=== PATIENT | female | born 1930 | race Caucasian/White ===

== ENCOUNTER 2016-08-05 17:48 | Emergency (ER) | payer MEDICARE ==
[~2016-08-05] VITALS: Ht 167.6 cm; Wt 57.7 kg
[2016-08-05 17:48] VITALS: TEMP 98.2; Ht 167.6 cm; Wt 57.7 kg
[~2016-08-05 17:48] MED LIST: ASPI-725 PO; ENOX40DI SQ; LISI-127 PO; [UNRECOGNIZED DRUG - CODE] IJ
--- NOTE | 2016-08-05 17:54 | ERPDOC ---
Departure Disposition Decision Date: Aug 05, 2016 Disposition Decision Time: 22:45 Disposition: 04 TO [facility] HOME/FACILITY Impression Impression Impression: Primary Impression: Agitation Additional Impression: History of anxiety Condition: Improved Seen By: Mid-level only Patient Instructions: Medical Clearance for Psychiatric Care (ED) Problems/Meds/Labs Reviewed?: Yes Medications reviewed and manag: Yes Additional Instructions: Patient did not meet criteria for in patient admission for psychiatric unit. Offer patient prn lorazepam as needed for agitation/anxiety. Patient should follow with her PCP in next 2-3 days for re-evaluation. Follow up care ordered?: Yes Mental Status: Alert, Oriented HPI - Psychosocial General Stated Complaint: PSYCH EVALUATION Time Seen by MD: 17:54 Source: patient, EMS, snf records HPI - Psychosocial Initial Comments 86-year-old female brought to ED via EMS from [facility]. Patient states that she called police to reports that she was being held against her will at [facility]. Patient states that she has not been given her daily aspirin since she was admitted there a few days ago from [facility]. Patient says that Duane Vasques "locked her in the room". Duane Vasques sent paper work stating patient has been "throwing things, slamming doors, yelling and trying to leave facility" Patient states she had been living in a motel in [facility] and then had a spinal injury that she was admitted to [facility]. From [facility] patient went to [facility] for 1 month. Allergies: Coded Allergies: iodine (Verified Allergy, Unknown, 08/05/16) shellfish derived (Verified Allergy, Unknown, 08/05/16) Past History Past Medical History Metabolic: diabetes, hypertension Cardiac: CAD Respiratory: DENIES: asthma GI: DENIES: ulcers Female: DENIES: renal failure Neurological: DENIES: seizures Musculoskeletal: back pain Hematologic: anemia Psychological: dementia Surgical History Cardiac: cardiac bypass Family History Family PMH: FOUND: [place] Social History Housing: snf Review of Systems Constitutional Constitutional: DENIES: chills, dizziness, fever, weakness Eyes General: DENIES: erythema, exudate Lids/Accessories: DENIES: erythema, swelling ENMT Ears: DENIES: pain Sinuses: DENIES: congestion, rhinorrhea Mouth/Throat: DENIES: sore throat Cardiovascular Cardiac: DENIES: chest pain, murmur Rhythm/Rate: DENIES: palpitations Pulmonary Respiratory: DENIES: cough, dyspnea GI Upper Abdomen: DENIES: nausea, pain, vomiting Lower Abdomen: DENIES: blood in stool, diarrhea, pain General: DENIES: dysuria, pain Musculoskeletal General: DENIES: joint pain, pain, tenderness Integumentary Skin: DENIES: color change, itching, rash Neurological General: memory disturbances, DENIES: ataxia, change in strength, numbness, paralysis/paresis, weakness Psychiatric Psychiatric: DENIES: anxiety, depression, nervousness Physical Exam General General Nourishment: well nourished, well developed, no acute distress, adult General Body Habitus: well groomed Vitals and Pain First Documented Vital Signs Date Time Temp Pulse Resp B/P Pulse Ox O2 Delivery O2 Flow Rate FiO2 08/05/16 17:48 98.2 78 16 188/86 94 Room Air Weight: Kilograms: Height (feet): Height (inches): Triage Pain Scale: Eyes (brief) Eyes Brief: found: EOMI, PERRL ENMT (brief) ENMT Brief: FOUND: TM clear, TM good light reflex, mucosa moist, NOT FOUND: nasal exudate, nasal swelling, pharnyx erythema Neck (brief) Neck: FOUND: trachea midline, NOT FOUND: adenopathy, tenderness, thyromegaly Respiratory (brief) Respiratory: FOUND: clear all vargas, equal bilaterally, symmetrical Cardiovascular (brief) Cardiac: FOUND: regular rate, regular rhythm Abdomen (brief) Abdominal Brief: FOUND: bowel normo active x4, soft, NOT FOUND: tender Musculoskeletal (brief) Musculoskeletal Brief: NOT FOUND: deformity, loss of motion Integumentary (brief) Integumentary Brief: FOUND: dry, pink, warm Neurologic (brief) Neurological Brief: FOUND: CN w/o gross def to obs, gait w/o gross def to obs, motor-no gross deficits, sensory-no gross deficits Psychiatric (brief) Psychiatric Brief: FOUND: alert Differential Diagnoses Considering: Anxiety, Delirium, Dementia, Depression, Acute Psychosis Progress Results/Orders Orders Procedure Category Date Status Time Nothing By Mouth (Ed EDM 08/05/16 Transmitted Only) 17:52 Cbc W/Auto LAB 08/05/16 Complete Diff-Reflex Manual 17:52 Bmp - Basic Metabolic LAB 4/9/17 Complete Panel 17:52 Ua, Dip Wreflex LAB 08/05/16 Complete Microsc & General Ophthalmologist 17:52 Tsh - Thyroid Stim LAB 08/05/16 Complete Hormone 17:52 Lab Results Laboratory Tests Test 08/05/16 18:03 08/05/16 19:10 White Blood Count 3.7T/MM3 Red Blood Count 3.99M/MM3 Hemoglobin 12.6GM/DL Hematocrit 39.0% Mean Corpuscular Volume 97.7UM3 Mean Corpuscular Hemoglobin 31.6UUG Mean Corpuscular Hemoglobin Concent 32.3GM/DL RDW Standard Deviation 47.3FL Platelet Count 184T/MM3 Mean Platelet Volume 8.8UM3 Immature Granulocyte % (Auto) 0.0% Neutrophils (%) (Auto) 48.8% Lymphocytes (%) (Auto) 34.4% Monocytes (%) (Auto) 11.7% Eosinophils (%) (Auto) 4.6% Basophils (%) (Auto) 0.5% Absolute Immature Granulocyte (auto 0.00T/MM3 Absolute Neutrophils (auto) 1.8T/MM3 Absolute Lymphocytes (auto) 1.3T/MM3 Absolute Monocytes (auto) 0.4T/MM3 Absolute Eosinophils (auto) 0.2T/MM3 Absolute Basophils (auto) 0.0T/MM3 Turbidity < 20 Sodium Level 138MEQ/L Potassium Level 4.2MEQ/L Chloride Level 102MEQ/L Carbon Dioxide Level 27MEQ/L Anion Gap 9MEQ/L Blood Urea Nitrogen 12.0MG/DL Creatinine 0.7MG/DL Glomerular Filtration Rate Calc 79 BUN/Creatinine Ratio 17RATIO Glucose Level 132MG/DL Calculated Osmolality 268MOSM/KG Calcium Level 10.3MG/DL Icterus Index < 2 Thyroid Stimulating Hormone (TSH) 1.72MIU/L Chemistry Specimen Hemolysis < 15 Urine Collection Type Straight cath Urine Color Yellow Urine Turbidity Clear Urine pH 7.0 Urine Specific [place] <=1.005 Urine Protein Negative Urine Glucose (UA) Negative Urine Ketones Negative Urine Blood Trace-intact Urine Nitrite Negative Urine Bilirubin Negative Urine Urobilinogen 0.2EU/DL Urine Leukocyte Esterase Negative Urinalysis Comment Microscopic not ind. Progress Progress Labs unremarkable (similar to previous) Patient states she will go voluntary to [facility] if she meets criteria for admission. I spoke with Jos (director of [employer]) who said patient does not meet criteria for admission to [facility]. Patient has been cooperative and has shown no agitation during time she has spent in the ED. I explained to patient that she did not meet criteria for admission to [facility]. I told patient that she would have to go back to [facility], however if she did not want to continue to stay at [facility] she could visit with her PCP about other options. Patient did agree with plan of cre. Nurse called report [facility] and staff told our nurse that the cannot take patient back until provider speaks to patient PCP's PA. PA was paged without return of call. I spoke to Nidia aCmp revenue settlements administrator at [facility] and informed her that patient did not meet criteria for generations/psychiatric admission. I discussed with Nidia that patient has been cooperative and pleasant in our ED. Nidia Camp requesting that ED provider write Rx. for some type of medication for pain or to control patient's behavior. I explained to Nidia Camp that would be best addressed by Dr. Gomez patient's PCP. Patient has not complained of any pain in the ED and has been appropriated and cooperative. Patient does have lorazepam already prescribed prn for anxiety. Nidia Camp said she will have someone come corn picker patient. ALANNAH FISCHER FABRICATION ENGINEER Aug 05, 2016 17:54
--- OUTSIDE RECORDS SUMMARY | 2016-08-05 17:56 | XMS REPORT | Continuity of Care Document ---
Author Author [facility] Organization [facility] Address Unknown Phone Unavailable Support Name Relationship Address Phone RAFIQ HERMAN MD Caregiver [address], [place] [id number] GAVI RAMIREZ MD Caregiver [address] [place], [place] [address] MELVA MCNEAL & MAMIE Next Of Kin [address] [place], [place] [address] Insurance Providers Payer Name Policy Number Subscriber Name Relationship Medicare A And B [id number] Shira Adair 18 Self / Same As Patient Chief Complaint and Reason for Visit Chief Complaint DIZZINESS OBSERVATION Reason for Visit Hypertensive emergency Altered mental status Problems Medical Problems Problem Onset Date Status Hypertensive emergency 11/17/2014 Active Altered mental status ~11/17/2014 Active Medications Medication Dose Route Sig Days/Qty Instructions Order Date Discontinued Date Status Acetaminophen (Tylenol) 325 Mg ORAL EVERY 6 HOURS PRN PAIN 11/18/14 Active Aspirin 325 Mg ORAL DAILY 11/18/14 Active Carboxymethylcellulose Sodium (Carboxymethylcellulose 1%) 1 Each OPTHALMIC THREE TIMES A DAY PRN DRY EYES 11/18/14 Active Social History No social history. Hospital Discharge Instructions Patient's Instructions Instructions Instructions You are being discharged to the [facility] for further rehabilitation. You would benefit from establishing care with a physician in the near future. Your blood pressure has been dangerously elevated and needs to be monitored. Activity Instructions With assistance for now. Doctor's Appointment In the next 1-2 weeks, you need to be have follow up with a physician. Discharge Diet: Heart Healthy Discharge Plan of Care Discharge Plan of Care #1 Problem: Limited mobility Goal: Regain strength Instructions for meeting goal: FOLLOW DR. HERMAN'S DISCHARGE INSTRUCTIONS, CONTINUE WITH [facility]'S PT/OT Plan of Care Discharge Date 11/18/14 5:25pm Disposition 61 MEDICARE SWING BED Instructions/Education Provided Lisinopril (By mouth) Prescriptions See Medications Section Functional Status No functional status results. Allergies, Adverse Reactions, Alerts Allergen Type Severity Reaction Status Last Updated Iodine and Iodide Containing Produc Allergy Severe Active 11/17/14 Immunizations No immunization records. Vital Signs Acute Vital Signs Vital Response Date/Time Temperature (Fahrenheit) 97.5 Pulse 81 bpm Respirations 13 Height 5 ft 5 in Weight 113 lb Body Mass Index 18.8 kg/m^2 Results Test Source Date Result Interp. Ref. Range Comments Urine Squamous Epithelial Cells November 18, 2014 1:45pm 0-2 /LPF Collected by nurse? YHas specimen been collected/obtained? Y Urine Bacteria November 18, 2014 1:45pm 3+ /HPF H Collected by nurse? YHas specimen been collected/obtained? Y Urine WBC November 18, 2014 1:45pm 20-50 /HPF H Collected by nurse? YHas specimen been collected/obtained? Y Urine RBC November 18, 2014 1:45pm 2-5 /HPF Collected by nurse? YHas specimen been collected/obtained? Y Urine Collection Type November 18, 2014 1:45pm Clean catch Collected by nurse? YHas specimen been collected/obtained? Y Volume Urine Centrifuged November 18, 2014 1:45pm 12 ml Collected by nurse? YHas specimen been collected/obtained? Y Urine Leukocyte Esterase November 18, 2014 1:45pm 1+ H Negative Collected by nurse? YHas specimen been collected/obtained? Y Urine Urobilinogen November 18, 2014 1:45pm 0.2 mg/dL 0.2-1.0 Collected by nurse? YHas specimen been collected/obtained? Y Urine Bilirubin November 18, 2014 1:45pm Negative Negative Collected by nurse? YHas specimen been collected/obtained? Y Urine Nitrite November 18, 2014 1:45pm Positive H Negative Collected by nurse? YHas specimen been collected/obtained? Y Urine Ketones November 18, 2014 1:45pm Negative Negative Collected by nurse? YHas specimen been collected/obtained? Y Urine RBC (Auto) November 18, 2014 1:45pm 1+ H Negative Collected by nurse ? YHas specimen been collected/obtained? Y Urine Glucose (UA) November 18, 2014 1:45pm Negative Negative Collected by nurse? YHas specimen been collected/obtained? Y Urine Protein November 18, 2014 1:45pm Negative Negative Collected by nurse? YHas specimen been collected/obtained? Y Urine Specific [place] November 18, 2014 1:45pm 1.015 1.005-1.030 Collected by nurse? YHas specimen been collected/obtained? Y Urine pH November 18, 2014 1:45pm 7.0 5.0 - 8.0 Collected by nurse? YHas specimen been collected/obtained? Y Urine Clarity November 18, 2014 1:45pm Clear Collected by nurse? YHas specimen been collected/obtained? Y Urine Color November 18, 2014 1:45pm Yellow Collected by nurse? YHas specimen been collected/obtained? Y Activated Partial Thromboplast Time November 17, 2014 7:30pm 30.8 SEC N 24.9 -35.9 Alanine Aminotransferase (ALT/SGPT) November 17, 2014 7:30pm 55 U/L N 30-65 Albumin November 17, 2014 7:30pm 4.1 g/dL N 3.4-5.0 Albumin/Globulin Ratio November 17, 2014 7:30pm 1.242 N 1.1-1.8 Alkaline Phosphatase November 17, 2014 7:30pm 99 U/L N 38-126 Anion Gap November 18, 2014 5:55am 10.9 MEQ/L N 3-15 Specimen Comment: blood in lab Aspartate Amino Transf (AST/SGOT) November 17, 2014 7:30pm 56 U/L H 15-37 BUN/Creatinine Ratio November 18, 2014 5:55am 21 H 10-20 Specimen Comment: blood in lab Basophils # (Auto) November 18, 2014 5:55am 0.1 10^3uL Specimen Comment : blood in lab Basophils (%) (Auto) November 18, 2014 5:55am 1 % N 0-2 Specimen Comment: blood in lab Blood Urea Nitrogen November 18, 2014 5:55am 14 mg/dL N 7-18 Specimen Comment: blood in lab Calcium Level November 18, 2014 5:55am 10.2 mg/dL N 8.8-10.8 Specimen Comment: blood in lab Calcium/Ionized Calcium Ratio November 17, 2014 7:30pm 4.6 mg/dL N 3.8-4.6 Calculated Osmolality November 17, 2014 7:30pm 275 mosm/L L 280-300 Carbon Dioxide Level November 18, 2014 5:55am 29 mmol/L N 22-29 Specimen Comment: blood in lab Chloride Level November 18, 2014 5:55am 104 mmol/L N 98-108 Specimen Comment: blood in lab Creatine Kinase MB November 17, 2014 7:30pm 1.2 ng/mL N 0.0-6.0 Creatinine November 18, 2014 5:55am 0.68 mg/dL N 0.6-1.2 Specimen Comment: blood in lab Eosinophils # (Auto) November 18, 2014 5:55am 0.2 10^3uL Specimen Comment: blood in lab Eosinophils (%) (Auto) November 18, 2014 5:55am 6 % H 0-4 Specimen Comment : blood in lab Estimat Glomerular Filtration Rate November 18, 2014 5:55am 99.7 Specimen Comment: blood in lab Estimated GFR (Non- November 18, 2014 5:55am 82.4 Specimen Comment: blood in lab Glucose Level November 18, 2014 5:55am 85 mg/dL DN 70-110 Specimen Comment : blood in lab Hematocrit November 18, 2014 5:55am 34.70 % L 35.00-45.00 Specimen Comment : blood in lab Hemoglobin November 18, 2014 5:55am 11.5 g/dL L 12.0-15.5 Specimen Comment : blood in lab Lymphocytes # (Auto) November 18, 2014 5:55am 1.2 X10^3 Specimen Comment: blood in lab Lymphocytes (%) (Auto) November 18, 2014 5:55am 31 % N 20-46 Specimen Comment: blood in lab Mean Corpuscular Hemoglobin November 18, 2014 5:55am 32.0 PG N 26.0-34.0 Specimen Comment: blood in lab Mean Corpuscular Hemoglobin Concent November 18, 2014 5:55am 33.1 g/dL N 31.0-37.0 Specimen Comment: blood in lab Mean Corpuscular Volume November 18, 2014 5:55am 97 FL N 80-100 Specimen Comment: blood in lab Mean Platelet Volume November 18, 2014 5:55am 9.1 FL N 6.0-9.5 Specimen Comment: blood in lab Monocytes # (Auto) November 18, 2014 5:55am 0.5 X10^3 Specimen Comment : blood in lab Monocytes (%) (Auto) November 18, 2014 5:55am 13 % H 3-11 Specimen Comment : blood in lab Neutrophils # (Auto) November 18, 2014 5:55am 1.9 X10^3 Specimen Comment: blood in lab Neutrophils (%) (Auto) November 18, 2014 5:55am 49 % L 51-67 Specimen Comment: blood in lab Platelet Count November 18, 2014 5:55am 225 10^3uL N 150-450 Specimen Comment: blood in lab Potassium Level November 18, 2014 5:55am 4.3 mmol/L N 3.5-5.1 Specimen Comment: blood in lab Prothromb Time International Ratio November 17, 2014 7:30pm 0.9 N 0.8-1.4 Prothrombin Time November 17, 2014 7:30pm 12.4 SEC N 11.9-14.2 Red Blood Count November 18, 2014 5:55am 3.59 10^6uL L 4.00-5.00 Specimen Comment: blood in lab Red Cell Distribution Width November 18, 2014 5:55am 13.2 % N 11.8-15.6 Specimen Comment: blood in lab Sodium Level November 18, 2014 5:55am 140 mmol/L N 135-150 Specimen Comment : blood in lab Thyroid Stimulating Hormone (TSH) November 17, 2014 7:30pm 1.23 uIU/mL N 0.46-4.68 Specimen Comment: blood in lab Total Bilirubin November 17, 2014 7:30pm 0.5 mg/dL N 0.1-1.0 Total Creatine Kinase November 17, 2014 7:30pm 26 U/L L 30-135 Total Protein November 17, 2014 7:30pm 7.4 g/dL N 6.4-8.5 Troponin I November 17, 2014 7:30pm 0.016 ng/mL N 0.010-0.080 White Blood Count November 18, 2014 5:55am 3.81 10^3uL L 4.0-11.0 Specimen Comment: blood in lab Procedures No known history of procedures. Encounters Encounter Location Date/Time Admitted Inpatient [facility] 11/17/14 11:00pm Registered Clinic [facility] 11/17/14 8:30pm Registered Clinic [facility] 11/03/14 4:33pm Recent Diagnosis Hypertensive emergency Altered mental status
--- OUTSIDE RECORDS SUMMARY | 2016-08-05 17:56 | XMS REPORT | Continuity of Care Document ---
Author Author [facility] Address Unknown Phone Unavailable Care Team Providers Care Repulping Supervisor Name Role Phone NOÉ CLEMENS MD Primary Care Physician [phone] Insurance Providers Payer Name Policy Number Subscriber Name Relationship Medicare A And B [id number] Shira Adair 18 Self / Same As Patient Advance Directives Directive Response Recorded Date/Time Advanced Directives Unknown 09/10/15 11:01am Chief Complaint and Reason for Visit Chief Complaint Cardiac Complaint Reason for Visit Hypertensive urgency Dizziness Dependent edema Problems Active Problems Medical Problem Onset Date Status Abdominal pain Unknown Acute Altered mental status ~11/17/2014 Acute Back pain Unknown Chronic Chest pain Unknown Acute Dependent edema Unknown Acute Dizziness Unknown Acute Hypertensive emergency 11/17/2014 Resolved Hypertensive urgency Unknown Acute Laceration Unknown Acute Medications Past Home Medications Medication Directions Ordered Status Acetaminophen (Tylenol) 325 Mg Tablet, 325 Mg Oral Every 6 Hours as needed for Pain 11/18/14 Discontinued Aspirin 325 Mg Tab, 325 Mg Oral Daily 11/18/14 Discontinued Carboxymethylcellulose Sodium (Carboxymethylcellulose 1%) 1 Each Droperette, 1 Each Opthalmic Three Times A Day as needed for Dry Eyes 11/18/14 Discontinued Losartan Potassium (Cozaar) 25 Mg Tablet, 25 Mg Oral Daily 12/22/14 Discontinued Atorvastatin 10 Mg Tablet, 10 Mg Oral Moth@2100 12/22/14 Discontinued Hydrocodone Bit/Acetaminophen 1 Each Tablet, 1 Each Oral Every 4HRS as needed for Pain 12/22/14 Discontinued Cephalexin 500 Mg Capsule, 500 Mg Oral Four Times Daily 05/13/15 Discontinued Social History Query Response Start Date Stop Date Smoking Status Unknown, if ever smoked Hospital Discharge Instructions No hospital discharge instructions. Plan of Care Discharge Date 09/10/15 3:29pm Disposition 01 HOME OR SELF-CARE Condition at Discharge Stable Instructions/Education Provided Vertigo (ED) Chronic Hypertension (ED) Leg Edema (ED) Prescriptions See Medication Section Referrals NOÉ CLEMENS MD - Additional Instructions/Education Your blood pressure improved while you were in the ER today, but still remains elevated. Your leg swelling may improve with sodium restriction and elevation of your feet. You should follow up with your doctor this week on both issues, and for any further evaluation of your chronic dizziness. Some of your test results may not be complete prior to your leaving the Emergency Department. The Emergency Department is not authorized to give test results over the phone. Please contact the doctor's office listed in this packet of information for your final results. Follow up with your primary care physician or return to the Emergency Department for worsening or worrisome symptoms. * Emergency Department phone number: [phone], x [phone] MEDICAL RECORD If you need copies of your X-rays, call [phone]. If you need copies of your medical record, including lab results, a signed authorization for release of records will be required. A telephone call for release of Health Information is not allowed. BILLING Billing can sometimes be confusing and frustrating. To help avoid confusion in the future, please take a moment to acquaint yourself with the billing parties for services. SERVICE BILLING LIBERTARIAN Emergency Room Services [facility] Physician Services [facility] X-rays [facility] Patients will receive bills for services from the appropriate provider. If you have any questions about your [facility] bill, our staff will be happy to assist you. Please call [phone], and ask for the billing department. THANK YOU for choosing [facility] as your emergency care provider! Care Plan and Goals ~~Discharge Care Plan~~ Problem: Chest, epigastric or chest wall pain Goal: Decreased pain Instructions: Take medication(s) as directed. Follow home discharge instructions. Follow up with primary care physician or intelligence analyst as directed. Functional Status No functional status results. Allergies, Adverse Reactions, Alerts Allergen Type Severity Reaction Status Last Updated Iodine and Iodide Containing Produc Allergy Severe Active 11/17/14 Immunizations Name Given Type Status Date Pneumonia Vaccine Received if Current 05/04/11 Historical Historical Vital Signs Acute Vital Signs Vital Response Date/Time Temperature (Fahrenheit) 99.5 09/10/2015 3:28pm Pulse 75 bpm 09/10/2015 3:28pm Respirations 18 09/10/2015 3:28pm Height 5 ft 7 in Weight 134 lb Body Mass Index 21.0 kg/m^2 Results Laboratory Results Test Name Result Units Flags Reference Collection Date/Time Result Date/ Time Comments White Blood Count 3.56 10^3uL L 4.0-11.0 09/10/2015 10:18am 09/10/2015 11:49am Red Blood Count 4.17 10^6uL 4.00-5.00 09/10/2015 10:18am 09/10/2015 11: 49am Hemoglobin 12.9 g/dL 12.0-15.5 09/10/2015 10:1809/10/2015 11:49am Hematocrit 38.10 % 35.00-45.00 09/10/2015 10:1809/10/2015 11:49am Mean Corpuscular Volume 91 FL 80-100 09/10/2015 10:1809/10/2015 11: 49am Mean Corpuscular Hemoglobin 30.9 PG 26.0-34.0 09/10/2015 10:182015 11:49am Mean Corpuscular Hemoglobin Concent 33.9 g/dL 31.0-37.0 09/10/2015 10: 18am 09/10/2015 11:49am Red Cell Distribution Width 14.9 % 11.8-15.6 09/10/2015 10:18am 2015 11:49am Platelet Count 184 10^3uL 150-450 09/10/2015 10:1809/10/2015 11: 49am Mean Platelet Volume 9.5 FL 6.0-9.5 09/10/2015 10:1809/10/2015 11: 49am Differential Total Cells Counted 100 09/10/2015 10:1809/10/2015 11:49am Segmented Neutrophils % 55 % 51-67 09/10/2015 10:1809/10/2015 11: 49am Band Neutrophils % 1 % 0-6 09/10/2015 10:1809/10/2015 11:49am Lymphocytes % (Manual) 24 % 20-46 09/10/2015 10:1809/10/2015 11: 49am Monocytes % (Manual) 16 % H 3-11 09/10/2015 10:1809/10/2015 11:49am Eosinophils % (Manual) 3 % 0-4 09/10/2015 10:1809/10/2015 11:49am Basophils % (Manual) 1 % 0-2 09/10/2015 10:09/10/2015 11:49am Neutrophils # 2.0 09/10/2015 10:1809/10/2015 11:49am Absolute Band Neutrophils 0.0 # 09/10/2015 10:1809/10/2015 11: 49am Lymphocytes # 0.8 # 09/10/2015 10:1809/10/2015 11:49am Monocytes # 0.5 09/10/2015 10:1809/10/2015 11:49am Eosinophils # 0.1 09/10/2015 10:1809/10/2015 11:49am Basophils # (Manual) 0.0 09/10/2015 10:1809/10/2015 11:49am Blood Morphology Comment NORMAL NORMAL 09/10/2015 10:1809/10/2015 11:49am Prothrombin Time 11.7 SEC 11.6-14.2 09/10/2015 10:1809/10/2015 11: 43am Prothromb Time International Ratio 0.9 0.8-1.4 09/10/2015 10:18 11:43am Volume Urine Centrifuged 12 mL 09/10/2015 1:25pm 09/10/2015 1:57pm Urine Collection Type RANDOM VOIDED 09/10/2015 1:09/10/2015 1: 57pm Urine Color Yellow 09/10/2015 1:pm 09/10/2015 1:53pm Urine Clarity Clear 09/10/2015 1:pm 09/10/2015 1:53pm Urine pH 7.5 5.0 - 8.0 09/10/2015 1:pm 09/10/2015 1:53pm Urine Specific [place] 1.015 1.005-1.030 09/10/2015 1:pm 2015 1:53pm Urine Protein Negative Negative 09/10/2015 1:09/10/2015 1:53pm Urine Glucose (UA) Negative Negative 09/10/2015 1:09/10/2015 1: 53pm Urine RBC (Auto) Trace-intact H Negative 09/10/2015 1:pm 09/10/2015 1:53pm Urine Ketones Negative Negative 09/10/2015 1:pm 09/10/2015 1:53pm Urine Nitrite Negative Negative 09/10/2015 1:09/10/2015 1:53pm Urine Bilirubin Negative Negative 09/10/2015 1:09/10/2015 1: 53pm Urine Urobilinogen 0.2 mg/dL 0.2-1.0 09/10/2015 1:pm 09/10/2015 1: 53pm Urine Leukocyte Esterase Negative Negative 09/10/2015 1:2015 1:53pm Urine RBC 0-2 /HPF 09/10/2015 1:pm 09/10/2015 1:57pm Urine WBC None Seen /HPF 09/10/2015 1:09/10/2015 1:57pm Urine Bacteria Rare /HPF 09/10/2015 1:09/10/2015 1:57pm Urine Squamous Epithelial Cells 2-5 /LPF 09/10/2015 1:pm 2015 1:57pm Sodium Level 137 mmol/L 135-150 09/10/2015 10:18am 09/10/2015 11:43am Potassium Level 3.9 mmol/L 3.5-5.1 09/10/2015 10:18am 09/10/2015 11: 43am Chloride Level 102 mmol/L 98-108 09/10/2015 10:1809/10/2015 11:43am Carbon Dioxide Level 28 mmol/L 22-29 09/10/2015 10:1809/10/2015 11: 43am Anion Gap 10.4 MEQ/L 3-15 09/10/2015 10:1809/10/2015 11:43am Blood Urea Nitrogen 18 mg/dL 7-18 09/10/2015 10:1809/10/2015 11: 43am Creatinine 0.72 mg/dL 0.6-1.2 09/10/2015 10:1809/10/2015 11:43am BUN/Creatinine Ratio 25 H 10-20 09/10/2015 10:1809/10/2015 11:43am Estimat Glomerular Filtration Rate 93.1 09/10/2015 10:182015 11:43am Estimated GFR (Non- 77.0 09/10/2015 10:182015 11:43am Glucose Level 133 mg/dL H 70-110 09/10/2015 10:1809/10/2015 11:43am Calculated Osmolality 268 mosm/L L 280-300 09/10/2015 10:182015 11:43am Calcium Level 11.2 mg/dL H 8.8-10.8 09/10/2015 10:1809/10/2015 11: 43am Calcium/Ionized Calcium Ratio 4.8 mg/dL H 3.8-4.6 09/10/2015 10:18 11:43am Total Bilirubin 0.7 mg/dL 0.1-1.0 09/10/2015 10:1809/10/2015 11: 43am Alkaline Phosphatase 59 U/L 38-126 09/10/2015 10:1809/10/2015 11: 43am Aspartate Amino Transf (AST/SGOT) 52 U/L H 15-37 09/10/2015 10:18 11:43am Alanine Aminotransferase (ALT/SGPT) 50 U/L 30-65 09/10/2015 10:18 11:43am Total Creatine Kinase 133 U/L 30-135 09/10/2015 1:12pm 09/10/2015 1: 35pm Creatine Kinase MB 6.5 ng/mL H 0.0-6.0 09/10/2015 1:12pm 09/10/2015 1: 40pm Troponin I 0.017 ng/mL 0.010-0.080 09/10/2015 1:12pm 09/10/2015 1:40pm GB-Ogu-F-Type Natriuretic Peptide 415 pg/mL 0-450 09/10/2015 10:18am 11:56am <300 ng/mL - HF unlikely Age <50 years, NT-proBNP >450 pg/mL - HF Likely Age 50-75 yrs, NT-proBNP >900 pg/mL - HF Likely Age >75 yrs, NT-proBNP >1800 - HF likely Total Protein 7.5 g/dL 6.4-8.5 09/10/2015 10:18am 09/10/2015 11:43am Albumin 4.3 g/dL # 3.4-5.0 09/10/2015 10:18am 09/10/2015 11:43am Albumin/Globulin Ratio 1.343 1.1-1.8 09/10/2015 10:18am 09/10/2015 11 :43am Thyroid Stimulating Hormone (TSH) 1.94 uIU/mL # 0.46-4.68 09/10/2015 10: 18am 09/10/2015 12:17pm Procedures No known history of procedures. Encounters Encounter Location Arrival/Admit Date Discharge/Depart Date Attending Provider Registered Emergency Room [facility] 09/10/15 10:49am ASLENA BERGERON DO Registered Clinic [facility] 09/10/15 10:20am SALENA BERGERON DO Recent Diagnosis
--- OUTSIDE RECORDS SUMMARY | 2016-08-05 17:57 | XMS REPORT | Continuity Of Care Document ---
Author Author [facility] Organization [facility] Address [address] [place] [address] Phone Care Team Providers Care Medical Authorization Specialist Name Role Phone SARIAH MEYERS, Jf Unavailable ELIDA AMARAL, R AT JAYLEEN MEYERS, D PP [phone] UNASSIGNED, PHYSICIAN Unavailable Unavailable DOMINGO MEYERS, ZAK Unavailable OLIVIA MEYERS, Kim Unavailable BK MEYERS, S CP DONNIE MEYERS, F AD Results Lab Results Visit/Account #[id number] (October 25, 2015 4:58pm - November 01, 2015 1:31pm) Test Result Date/Time 36256-7: COMPLETE BLOOD COUNT WITH DIFF WHITE BLOOD COUNT(4.0-11.0 10E3/UL) 4.8 10E3/UL October 25, 2015 5:18pm 3.3 10E3/UL October 26, 2015 5:21am RED BLOOD COUNT(4.00-5.20 10E6/UL) 3.83 10E6/UL October 25, 2015 5:18pm 3.63 10E6/UL October 26, 2015 5:21am HEMOGLOBIN(12.0-16.0 G/DL) 12.3 G/DL October 25, 2015 5:18pm 11.6 G/DL October 26, 2015 5:21am HEMATOCRIT(36.0-46.0 %) 36.6 % October 25, 2015 5:18pm 34.7 % October 26, 2015 5:21am MEAN CORPUSCULAR VOLUME(82.0-100.0 FL) 95.6 FL October 25, 2015 5:18pm 95.6 FL October 26, 2015 5:21am 52693-1: MEAN CORPUSCULAR HEMOGLOBIN(26.0-34.0 PG) 32.1 PG October 25, 2015 5:18pm 32.0 PG October 26, 2015 5:21am MEAN CORPUSCULAR HGB CONC(31.5-36.5 G/DL) 33.6 G/DL October 25, 2015 5:18pm 33.4 G/DL October 26, 2015 5:21am RED CELL DISTRIBUTION WIDTH(11.5-14.5 %) 14.1 % October 25, 2015 5:18pm 14.0 % October 26, 2015 5:21am 777-3: PLATELET COUNT(150-450 10E3/UL) 180 10E3/UL October 25, 2015 5:18pm 158 10E3/UL October 26, 2015 5:21am MEAN PLATELET VOLUME(8.2-12.4 FL) 9.4 FL October 25, 2015 5:18pm 9.1 FL October 26, 2015 5:21am 770-8: NEUTROPHILS % (AUTO)(40-70 %) 59 % October 25, 2015 5:18pm 52 % October 26, 2015 5:21am LYMPHOCYTES % (AUTO)(15-45 %) 20 % October 25, 2015 5:18pm 24 % October 26, 2015 5:21am 5905-5: MONOCYTES % (AUTO)(2-10 %) 18 % October 25, 2015 5:18pm 17 % October 26, 2015 5:21am 713-8: EOSINOPHILS % (AUTO)(0-6 %) 3 % October 25, 2015 5:18pm 6 % October 26, 2015 5:21am 706-2: BASOPHILS % (AUTO)(0-1 %) 1 % October 25, 2015 5:18pm 1 % October 26, 2015 5:21am 21381-3: IMMATURE GRANS % (AUTO)(0-0 %) 0 % October 25, 2015 5:18pm 0 % October 26, 2015 5:21am NUCLEATED RBCS (AUTO)(0-0 %) 0 % October 25, 2015 5:18pm 0 % October 26, 2015 5:21am 751-8: NEUTROPHILS # (AUTO)(2.5-7.5 10E3/UL) 2.8 10E3/UL October 25, 2015 5:18pm 1.7 10E3/UL October 26, 2015 5:21am 98856-0: LYMPHOCYTES # (AUTO)(1.0-4.0 10E3/UL) 0.9 10E3/UL October 25, 2015 5:18pm 0.8 10E3/UL October 26, 2015 5:21am 742-7: MONOCYTES # (AUTO)(0.2-0.8 10E3/UL) 0.8 10E3/UL October 25, 2015 5:18pm 0.5 10E3/UL October 26, 2015 5:21am 711-2: EOSINOPHILS # (AUTO)(0.0-0.4 10E3/UL) 0.1 10E3/UL October 25, 2015 5:18pm 0.2 10E3/UL October 26, 2015 5:21am 704-7: BASOPHILS # (AUTO)(0.0-0.2 10E3/UL) 0.1 10E3/UL October 25, 2015 5:18pm 0.0 10E3/UL October 26, 2015 5:21am IMMATURE GRANS # (AUTO)(0.0-0.0 10E3/UL) 0.0 10E3/UL October 25, 2015 5:18pm 0.0 10E3/UL October 26, 2015 5:21am DIFF TYPE AUTOMATED October 25, 2015 5:18pm AUTOMATED October 26, 2015 5:21am COMPLETE BLOOD COUNT WHITE BLOOD COUNT(4.0-11.0 10E3/UL) 3.3 10E3/UL October 27, 2015 5:27am 4.2 10E3/UL October 29, 2015 7:15am RED BLOOD COUNT(4.00-5.20 10E6/UL) 3.70 10E6/UL October 27, 2015 5:27am 3.94 10E6/UL October 29, 2015 7:15am HEMOGLOBIN(12.0-16.0 G/DL) 11.6 G/DL October 27, 2015 5:27am 12.6 G/DL October 29, 2015 7:15am HEMATOCRIT(36.0-46.0 %) 35.3 % October 27, 2015 5:27am 38.0 % October 29, 2015 7:15am MEAN CORPUSCULAR VOLUME(82.0-100.0 FL) 95.4 FL October 27, 2015 5:27am 96.4 FL October 29, 2015 7:15am 73204-9: MEAN CORPUSCULAR HEMOGLOBIN(26.0-34.0 PG) 31.4 PG October 27, 2015 5:27am 32.0 PG October 29, 2015 7:15am MEAN CORPUSCULAR HGB CONC(31.5-36.5 G/DL) 32.9 G/DL October 27, 2015 5:27am 33.2 G/DL October 29, 2015 7:15am RED CELL DISTRIBUTION WIDTH(11.5-14.5 %) 13.9 % October 27, 2015 5:27am 13.8 % October 29, 2015 7:15am 777-3: PLATELET COUNT(150-450 10E3/UL) 151 10E3/UL October 27, 2015 5:27am 175 10E3/UL October 29, 2015 7:15am MEAN PLATELET VOLUME(8.2-12.4 FL) 8.9 FL October 27, 2015 5:27am 8.9 FL October 29, 2015 7:15am NUCLEATED RBCS (AUTO)(0-0 %) 0 % October 27, 2015 5:27am 0 % October 29, 2015 7:15am 45384-9: PROTHROMBIN TIME WITH INR PROTHROMBIN TIME(12.1-14.0 SEC) 13.0 SEC October 25, 2015 5:18pm 56730-0: INR 1.02 Result Comments: INR reference interval applies to patients on anticoagulant therapy. Suggested INR therapeutic range for oral anticoagulant therapy: (Stabilized anticoagulated patients) Routine Therapy: 2.0 to 3.0 Recurrent Myocardial Infarction: 2.5 to 3.5 Mechanical Prosthetic Valves: 2.5 to 3.5 October 25, 2015 5:18pm PARTIAL THROMBOPLASTIN TIME PARTIAL THROMBOPLASTIN TIME(22.2-37.4 SEC) 31.3 SEC October 25, 2015 5:18pm 19516-2: COMPLETE METABOLIC PROFILE GLUCOSE(70-110 MG/DL) 86 MG/DL October 25, 2015 5:18pm BLOOD UREA NITROGEN(6-20 MG/DL) 13 MG/DL October 25, 2015 5:18pm CREATININE(0.50-1.20 MG/DL) 0.70 MG/DL October 25, 2015 5:18pm 19838-4: EST GLOMERULAR FILTRATION RATE(Greater than or equal to 60) Greater than or equal to 60 Result Comments: If the patient is of -German descent/extraction multiply the eGFR value by 1.212 to obtain the actual eGFR. >=60 mg/dL Normal 30-59 mg/dL Moderate Kidney Disease 15-29 mg/dL Severe Kidney Disease <15 mg/dL Kidney Failure October 25, 2015 5:18pm BUN CREATININE RATIO(10.0-20.0 RATIO) 19.0 RATIO October 25, 2015 5:18pm SODIUM(135-145 MMOL/L) 132 MMOL/L October 25, 2015 5:18pm POTASSIUM(3.6-5.0 MMOL/L) 4.1 MMOL/L October 25, 2015 5:18pm CHLORIDE(101-111 MMOL/L) 100 MMOL/L October 25, 2015 5:18pm 8-9: CO2(21-31 MMOL/L) 26 MMOL/L October 25, 2015 5:18pm ANION GAP(8-18) 10 October 25, 2015 5:18pm OSMO CALCULATED(270.0-290.0) 263.9 October 25, 2015 5:18pm CALCIUM(8.5-10.5 MG/DL) 10.5 MG/DL October 25, 2015 5:18pm BILIRUBIN,TOTAL(0.1-1.2 MG/DL) 1.0 MG/DL October 25, 2015 5:18pm ALKALINE PHOSPHATASE(42-121 IU/L) 62 IU/L October 25, 2015 5:18pm ASPARTATE AMINO TRANSFERASE(10-42 IU/L) 31 IU/L October 25, 2015 5:18pm ALANINE AMINOTRANSFERASE(10-60 IU/L) 25 IU/L October 25, 2015 5:18pm TOTAL PROTEIN(6.4-8.2 G/DL) 6.8 G/DL October 25, 2015 5:18pm ALBUMIN(3.5-5.5 G/DL) 4.1 G/DL October 25, 2015 5:18pm GLOBULIN(2.4-3.6) 2.7 October 25, 2015 5:18pm ALBUMIN/GLOBULIN RATIO(0.9-1.8 RATIO) 1.5 RATIO October 25, 2015 5:18pm BASIC METABOLIC PANEL GLUCOSE(70-110 MG/DL) 98 MG/DL October 26, 2015 5:21am 97 MG/DL October 27, 2015 5:27am 143 MG/DL October 29, 2015 7:15am BLOOD UREA NITROGEN(6-20 MG/DL) 12 MG/DL October 26, 2015 5:21am 12 MG/DL October 27, 2015 5:27am 19 MG/DL October 29, 2015 7:15am CREATININE(0.50-1.20 MG/DL) 0.60 MG/DL October 26, 2015 5:21am 0.65 MG/DL October 27, 2015 5:27am 0.67 MG/DL October 29, 2015 7:15am 68178-3: EST GLOMERULAR FILTRATION RATE(Greater than or equal to 60) Greater than or equal to 60 Result Comments: If the patient is of -German descent/extraction multiply the eGFR value by 1.212 to obtain the actual eGFR. >=60 mg/dL Normal 30-59 mg/dL Moderate Kidney Disease 15-29 mg/dL Severe Kidney Disease <15 mg/dL Kidney Failure October 26, 2015 5:21am Greater than or equal to 60 Result Comments: If the patient is of -German descent/extraction multiply the eGFR value by 1.212 to obtain the actual eGFR. >=60 mg/dL Normal 30-59 mg/dL Moderate Kidney Disease 15-29 mg/dL Severe Kidney Disease <15 mg/dL Kidney Failure October 27, 2015 5:27am Greater than or equal to 60 Result Comments: If the patient is of -German descent/extraction multiply the eGFR value by 1.212 to obtain the actual eGFR. >=60 mg/dL Normal 30-59 mg/dL Moderate Kidney Disease 15-29 mg/dL Severe Kidney Disease <15 mg/dL Kidney Failure October 29, 2015 7:15am BUN CREATININE RATIO(10.0-20.0 RATIO) 20.0 RATIO October 26, 2015 5:21am 18.0 RATIO October 27, 2015 5:27am 28.0 RATIO October 29, 2015 7:15am SODIUM(135-145 MMOL/L) 134 MMOL/L October 26, 2015 5:21am 133 MMOL/L October 27, 2015 5:27am 134 MMOL/L October 29, 2015 7:15am POTASSIUM(3.6-5.0 MMOL/L) 4.3 MMOL/L October 26, 2015 5:21am 4.2 MMOL/L October 27, 2015 5:27am 4.5 MMOL/L October 29, 2015 7:15am CHLORIDE(101-111 MMOL/L) 102 MMOL/L October 26, 2015 5:21am 99 MMOL/L October 27, 2015 5:27am 102 MMOL/L October 29, 2015 7:15am 8-9: CO2(21-31 MMOL/L) 28 MMOL/L October 26, 2015 5:21am 29 MMOL/L October 27, 2015 5:27am 29 MMOL/L October 29, 2015 7:15am ANION GAP(8-18) 8 October 26, 2015 5:21am 9 October 27, 2015 5:27am 8 October 29, 2015 7:15am OSMO CALCULATED(270.0-290.0) 268.0 October 26, 2015 5:21am 266.1 October 27, 2015 5:27am 273.0 October 29, 2015 7:15am CALCIUM(8.5-10.5 MG/DL) 9.7 MG/DL October 26, 2015 5:21am 9.5 MG/DL October 27, 2015 5:27am 9.9 MG/DL October 29, 2015 7:15am 49150-9: MAGNESIUM 75813-8: MAGNESIUM(1.8-2.5 MG/DL) 2.3 MG/DL October 27, 2015 5:27am 44746-1: [place] I 34948-2: CARDIAC TROPONIN I(0.01-0.04 NG/ML) 0.01 NG/ML Result Comments: REFERENCE RANGES: NEGATIVE < 0.04 NG/ML POSSIBLE MYCARDIAL INVOLVEMENT >/=0.04 NG/ML INTERPRET TROPONIN I RESULT IN LIGHT OF THE TOTAL CLINICAL PRESENTATION INCLUDING CLINICAL HISTORY. ANY CONDITION RESULTING IN MYOCARDIAL INJURY CAN POTENTIALLY ELEVATE TROPONIN I LEVELS ABOVE EXPECTED NORMAL RANGES. NOTE NEW REFERENCE RANGE October 25, 2015 5:18pm 3040-3: LIPASE 3040-3: LIPASE(22-51 U/L) 22 U/L October 25, 2015 5:18pm Allergies and Adverse Reactions Allergies and Adverse Reactions Patient Unit Number: [id number] Agent Type Reaction Severity Status IODINE Drug Allergy Unknown Severe Active Problem List Problem List Visit/Account #[id number] (October 25, 2015 4:58pm - November 01, 2015 1:31pm) Acute Problems: Code/Condition Comments Documented Start Date Documented Resolved Date Code (s) Total self-care deficit ICD10: R41.89 Total self-care deficit ICD9: 799.59 Total self-care deficit SNOMED: 93378087 Total self-care deficit Intractable low back pain ICD10: M54.5 Intractable low back pain ICD9: 724.2 Intractable low back pain SNOMED: 038420307 Intractable low back pain Physical deconditioning ICD10: R53.81 Physical deconditioning ICD9: 799.3 Physical deconditioning SNOMED: 892704689 Physical deconditioning Plan of Care Plan Of Care Visit/Account #[id number] (October 25, 2015 4:58pm - November 01, 2015 1:31pm) Patient Instructions Instructions Hydrocodone Vital Signs Vital Signs Visit/Account #[id number] (October 25, 2015 4:58pm - November 01, 2015 1:31pm) Sign First Result Last Result Code(s) Blood Pressure 133/ 77 mm[Hg] On October 26, 2015 2:05am 162/ 84 mm[Hg] On November 01, 2015 10:08am 162/ 84 mm[Hg] On November 01, 2015 10:08am 8480-6 BP Systolic Heart Rate/Pulse Pulse Rate (adult): 61 /min On October 26, 2015 2:05am Pulse Rate (adult): 72 /min On November 01, 2015 10:08am Pulse Rate (adult): 72 /min On November 01, 2015 10:08am 8867-4 Heart Rate 8893-0 Pulse rate Respiratory Rate Respiratory Rate: 16 /min On October 26, 2015 2:05am Respiratory Rate: 16 /min On November 01, 2015 10:08am Respiratory Rate: 16 /min On November 01, 2015 10:08am 9279-1 Respiratory rate Temperature in Fahrenheit Temperature (Fahrenheit): 97.4 [degF] On October 26, 2015 2:05am Temperature (Fahrenheit): 98.8 [degF] On November 01, 2015 10:08am Temperature (Fahrenheit): 98.8 [degF] On November 01, 2015 10:08am 8310-5 Body Temperature Weight in Kilograms Weight (Kilograms): 55.6 kg On October 25, 2015 4:56pm 3141-9 Weight Measured 25475-3 Body weight measured in kilograms Functional Status Functional and Cognitive Status No Functional Status Data Medications Home Medications - Medications that the patient was taking prior to arrival at the hospital Visit/Account #[id number] (October 25, 2015 4:58pm - November 01, 2015 1:31pm) Medication Route Sig/Schedule Precondition/Indication Comments/Instructions Codes ASPIRIN(ASPIRIN) 325 MG TABLET.DR Dose: 325 MG ORAL DAILY Aspirin 325 MG Delayed Release Oral Tablet (RxNorm): 534876 ASPIRIN (ASPIRIN) NDC: 82037782505 REFRESH CELLUVISC(CARBOXYMETHYLCELLULOSE SOD) 0.4 ML SOLUTION Dose: 1 DROP EACH EYE 3 TIMES A DAY DRY EYES Carboxymethylcellulose 0.01 MG/MG Ophthalmic Gel [Refresh Liquigel] (RxNorm): 8456813 REFRESH CELLUVISC (CARBOXYMETHYLCELLULOSE SOD) NDC: 64799249997 TYLENOL(ACETAMINOPHEN) 325 MG TAB Dose: 0 MG ORAL Q6H MILD PAIN Acetaminophen 325 MG Oral Tablet (RxNorm): 890444 TYLENOL (ACETAMINOPHEN) NDC: 85245146267 B-12(CYANOCOBALAMIN (VITAMIN B-12)) 500 MCG TABLET Dose: 500 MCG ORAL DAILY B-12 (CYANOCOBALAMIN (VITAMIN B-12)) NDC: 94993900836 VITAMIN B6(PYRIDOXINE HCL) 100 MG TAB Dose: 100 MG ORAL THREE TIMES A WEEK Vitamin B6 100 MG Oral Tablet (RxNorm): 546174 VITAMIN B6 (PYRIDOXINE HCL) NDC: 79768740331 VITAMIN D3(CHOLECALCIFEROL (VITAMIN D3)) 1000 UNIT CAPSULE Dose: 1000 UNIT ORAL DAILY Cholecalciferol 1000 UNT Oral Capsule (RxNorm): 542744 VITAMIN D3 (CHOLECALCIFEROL (VITAMIN D3)) NDC: 09672400874 Folic Acid(FOLIC ACID) 0.8 MG CAPSULE Dose: 0.8 MG ORAL 3-4 TIMES A WEEK Folic Acid (FOLIC ACID) NDC: 65916642655 Inpatient/Ordered Medications - Medications administered during hospital visit Visit/Account #[id number] (October 25, 2015 4:58pm - November 01, 2015 1:31pm) Medication Route Sig/Schedule Precondition/Indication Comments/Instructions Codes IV Medication Carriers: NORMAL SALINE(SODIUM CHLORIDE) 1000 ML INJECTION Dose: 500 ML INTRAVEN .Q30M (Rate: 1000 MLS/HR Duration: 30 MIN) Carriers: Sodium Chloride 0.154 MEQ/ML Injectable Solution (RxNorm): 291907 NORMAL SALINE (SODIUM CHLORIDE) NDC: 35828023260 SUBLIMAZE INJ(FentaNYL CITRATE) 100 MCG/2 ML INJECTION Dose: 0.5 ML INTRAVEN NOW Label Comments: GIVE BY SLOW PUSH OVER 2-5 MIN MAY INCREASE FALL RISK Fentanyl 0.05 MG/ML Injectable Solution (RxNorm): 008179 SUBLIMAZE INJ (FentaNYL CITRATE) NDC: 11172492515 ATIVAN INJ(LORazepam) 2 MG/ML INJECTION Dose: 0.25 ML INTRAVEN NOW Label Comments: *DILUTE WITH EQUAL VOLUME OF NORMAL SALINE PRIOR TO IV ADMINISTRATION MAY INCREASE FALL RISK 1 ML Lorazepam 2 MG/ML Injection [Ativan] (RxNorm): 2228000 ATIVAN INJ (LORazepam) NDC: 62382277352 TORADOL INJ(KETOROLAC TROMETHAMINE) 30 MG/ML INJECTION Dose: 0.5 ML INTRAVEN NOW Label Comments: DO NOT EXCEED 5 DAYS OF THERAPY 1 ML Ketorolac Tromethamine 30 MG/ML Injection (RxNorm): 0889355 TORADOL INJ (KETOROLAC TROMETHAMINE) NDC: 68325356160 LIDODERM 5% PATCH(LIDOCAINE) 1 PATCH PATCH Dose: 0 PATCH TOPICALLY NOW Label Comments: PATCH MAY REMAIN IN PLACE FOR UP TO 12 HOURS IN EACH 24 HOUR PERIOD Lidocaine Hydrochloride 0.05 MG/MG Transdermal Patch [Lidoderm] (RxNorm): 1250091 LIDODERM 5% PATCH (LIDOCAINE) NDC: 40290067003 DULCOLAX(BISACODYL) 10 MG SUPPOSITORY Dose: 10 MG RECTALLY NEEDED PRN Reason: CONSTIPATION Bisacodyl 10 MG Rectal Suppository [Bisac-Evac] (RxNorm): 313026 DULCOLAX (BISACODYL) NDC: 56252122871 NORCO 5-325(HYDROcodone BIT/ACETAMINOPHEN) 1 TAB TAB Dose: 0 TAB ORAL Q4H PRN Reason: MODERATE PAIN Label Comments: <<may be substituted for 5/500>> REC MAX DAILY DOSE ACETAMINOPHEN: 4000 MG/24 HR MAY INCREASE FALL RISK Special Dose Instructions: 1-2 TABS Acetaminophen 325 MG / Hydrocodone Bitartrate 5 MG Oral Tablet (RxNorm): 863453 NORCO 5-325 (HYDROcodone BIT/ACETAMINOPHEN) NDC: 03951078727 LOVENOX(ENOXAPARIN) 40 MG/0.4 ML INJECTION Dose: 0.4 ML SUBCUTANEOUSLY DAILY@07 Label Comments: INJECT SC INTO ABDOMINAL WALL ONLY. 0.4 ML Enoxaparin sodium 100 MG/ML Prefilled Syringe [Lovenox] (RxNorm): 839881 LOVENOX (ENOXAPARIN) NDC: 29411582826 ECOTRIN(ASPIRIN) 325 MG TAB Dose: 325 MG ORAL DAILY Aspirin 325 MG Delayed Release Oral Tablet (RxNorm): 717778 ECOTRIN (ASPIRIN) NDC: 93552239254 ECOTRIN(ASPIRIN) 81 MG TAB Dose: 81 MG ORAL DAILY Aspirin 81 MG Delayed Release Oral Tablet (RxNorm): 436225 ECOTRIN (ASPIRIN) NDC: 48428415898 DELTASONE(PredniSONE) 20 MG TAB Dose: 20 MG ORAL DAILY AT [facility] Label Comments: TAKE WITH FOOD OR MILK Prednisone 20 MG Oral Tablet (RxNorm): 526857 DELTASONE (PredniSONE) NDC: 93947391134 Discharge Medications - Medications that patient should continue to take. Review with physician Visit/Account #[id number] (October 25, 2015 4:58pm - November 01, 2015 1:31pm) Medication Route Sig/Schedule Precondition/Indication Comments/Instructions Codes ASPIRIN(ASPIRIN) 325 MG TABLET.DR Dose: 325 MG ORAL DAILY Aspirin 325 MG Delayed Release Oral Tablet (RxNorm): 890612 ASPIRIN (ASPIRIN) NDC: 24221867310 REFRESH CELLUVISC(CARBOXYMETHYLCELLULOSE SOD) 0.4 ML SOLUTION Dose: 1 DROP EACH EYE 3 TIMES A DAY DRY EYES Carboxymethylcellulose 0.01 MG/MG Ophthalmic Gel [Refresh Liquigel] (RxNorm): 1376501 REFRESH CELLUVISC (CARBOXYMETHYLCELLULOSE SOD) NDC: 81795629662 B-12(CYANOCOBALAMIN (VITAMIN B-12)) 500 MCG TABLET Dose: 500 MCG ORAL DAILY B-12 (CYANOCOBALAMIN (VITAMIN B-12)) NDC: 83883387222 VITAMIN B6(PYRIDOXINE HCL) 100 MG TAB Dose: 100 MG ORAL THREE TIMES A WEEK Vitamin B6 100 MG Oral Tablet (RxNorm): 253413 VITAMIN B6 (PYRIDOXINE HCL) NDC: 85643875100 VITAMIN D3(CHOLECALCIFEROL (VITAMIN D3)) 1000 UNIT CAPSULE Dose: 1000 UNIT ORAL DAILY Cholecalciferol 1000 UNT Oral Capsule (RxNorm): 239721 VITAMIN D3 (CHOLECALCIFEROL (VITAMIN D3)) NDC: 54125288355 Folic Acid(FOLIC ACID) 0.8 MG CAPSULE Dose: 0.8 MG ORAL 3-4 TIMES A WEEK Folic Acid (FOLIC ACID) NDC: 69211406532 HYDROcodone BIT/ACETAMINOPHEN 5-325 MG(HYDROcodone BIT/ACETAMINOPHEN) 1 EACH TABLET Dose: 1-2 TAB ORAL EVERY 6 HOURS PAIN Acetaminophen 325 MG / Hydrocodone Bitartrate 5 MG Oral Tablet (RxNorm): 115143 HYDROcodone BIT/ACETAMINOPHEN 5-325 MG (HYDROcodone BIT/ACETAMINOPHEN) NDC: 88794713193 History Of Encounters Encounters Visit/Account #[id number] (October 25, 2015 4:58pm - November 01, 2015 1:31pm) Account Status Physican Of Record Reason For Visit Visit Diagnosis Start Date/Time Stop Date/Time ER CARLTON BOURGEOIS MD INTRACTABLE LOW BACK PAIN,PHYSICAL DECONDITIONING M54.5: LOW BACK PAIN ICD10 Oct 25, 2015 4:58pm Oct 25, 2015 7:23pm IN SHAVONNE MARRERO DO INTRACTABLE LOW BACK PAIN,PHYSICAL DECONDITIONING M54.5: LOW BACK PAIN ICD10 Oct 25, 2015 7:23pm Nov 01, 2015 1:31pm History of Procedures Procedure List No procedures recorded. Discharge Instructions Discharge Instructions Visit/Account #[id number] (October 25, 2015 4:58pm - November 01, 2015 1:31pm) DISCHARGE INSTRUCTIONS Physician Documentation PROVIDER INSTRUCTIONS Discharge Diet As Tolerated Discharge Activity/Weight Bearing Status as tolerated Discharge Diet As Tolerated Discharge Activity/Weight Bearing Status as tolerated CARE MANAGEMENT/HOME HEALTH Care Management home health to evaluate and treat as needed - PT/OT needs REASON TO CALL PROVIDER Notify Physician if: fever, worsening pain FOLLOW UP APPOINTMENTS Follow Up With PCP in 5-7 days [phone] Dr. Hillman - call for appointment [phone] Social History Social History No Social History Data. Immunizations Immunizations Patient Unit Number: [id number] Immunizations No immunizations recorded.
--- OUTSIDE RECORDS SUMMARY | 2016-08-05 17:57 | XMS REPORT | Continuity of Care Document ---
Author Author [facility] Address Unknown Phone Unavailable Allergies Active Description Code Type Severity Reaction Onset Reported/Identified Relationship to Patient Clinical Status Yes Iodine and Iodide Containing Produc [id number] Drug Allergy Severe N/A 11/17/2014 Medications Problems Date Dx Coded Attending Type Code Diagnosis Diagnosed By 11/09/2014 Ot 724.2 11/09/2014 Ot 724.5 11/09/2014 Ot 729.5 11/09/2014 Ot 780.09 11/09/2014 Ot 784.0 11/09/2014 Ot 786.50 11/09/2014 Ot E849.6 11/09/2014 Ot E888.9 11/18/2014 VIRGIL MEYERS, RAFIQ Ot 401.9 11/18/2014 VIRGIL MEYERS, RAFIQ Ot 780.4 11/18/2014 VIRGIL MEYERS, RAFIQ H Ot V12.54 11/18/2014 VIRGIL MEYERS, RAFIQ Ot V15.81 11/23/2014 Ot 724.2 11/23/2014 Ot 724.5 11/23/2014 Ot 729.5 11/23/2014 Ot 780.09 11/23/2014 Ot 784.0 11/23/2014 Ot 786.50 11/23/2014 Ot E849.6 11/23/2014 Ot E888.9 11/24/2014 Ot 724.2 11/24/2014 Ot 724.5 11/24/2014 Ot 729.5 11/24/2014 Ot 780.09 11/24/2014 Ot 784.0 11/24/2014 Ot 786.50 11/24/2014 Ot E849.6 11/24/2014 Ot E888.9 11/24/2014 GAVI RAMIREZ MD Ot 780.79 11/24/2014 GAVI RAMIREZ MD Ot 784.0 11/24/2014 Ot 724.2 11/24/2014 Ot 724.5 11/24/2014 Ot 729.5 11/24/2014 Ot 780.09 11/24/2014 Ot 784.0 11/24/2014 Ot 786.50 11/24/2014 Ot E849.6 11/24/2014 Ot E888.9 11/24/2014 GAVI RAMIREZ MD R Ot 780.79 11/24/2014 GAVI RAMIREZ MD Ot 784.0 11/25/2014 Ot 724.2 11/25/2014 Ot 724.5 11/25/2014 Ot 729.5 11/25/2014 Ot 780.09 11/25/2014 Ot 784.0 11/25/2014 Ot 786.50 11/25/2014 Ot E849.6 11/25/2014 Ot E888.9 12/10/2014 GAVI RAMIREZ MD Ot 780.79 12/10/2014 GAVI RAMIREZ MD Ot 784.0 12/22/2014 BELGICA MEYERS, FRANSICO Ot 722.52 12/22/2014 BELGICA MEYERS, FRANSICO Ot 724.2 12/22/2014 BELGICA MEYERS, FRANSICO Ot 729.5 12/22/2014 BELGICA MEYERS, FRANSICO Ot 733.13 01/07/2015 SARITA MEYERS, TRUE Marquez Ot V12.54 04/19/2015 Ot 724.2 04/19/2015 Ot 724.5 04/19/2015 Ot 729.5 04/19/2015 Ot 780.09 04/19/2015 Ot 784.0 04/19/2015 Ot 786.50 04/19/2015 Ot E849.6 04/19/2015 Ot E888.9 04/19/2015 GAVI RAMIERZ MD R Ot 780.79 04/19/2015 GAVI RAMIREZ MD Ot 784.0 04/19/2015 SARITA MEYERS, TRUE Marquez Ot V12.54 04/19/2015 NOÉ CLEMENS MD Ot 733.00 04/19/2015 NOÉ CLEMENS MD Ot V49.81 05/05/2015 Ot 724.2 05/05/2015 Ot 724.5 05/05/2015 Ot 729.5 05/05/2015 Ot 780.09 05/05/2015 Ot 784.0 05/05/2015 Ot 786.50 05/05/2015 Ot E849.6 05/05/2015 Ot E888.9 05/05/2015 JAMES MEYERS, GAVI Marquez Ot 780.79 05/05/2015 GAVI RAMIREZ MD R Ot 784.0 05/05/2015 SARITA MEYERS, TRUE R Ot V12.54 05/05/2015 JAYLEEN MEYERS, NOÉ Benavides Ot 733.00 05/05/2015 JAYLEEN MEYERS, NOÉ Benavides Ot V49.81 05/05/2015 JAYLEEN MEYERS, NOÉ Benavides Ot E83.52 05/05/2015 JAYLEEN MEYERS, NOÉ Benavides Ot I65.23 05/05/2015 JAYLEEN MEYERS, NOÉ Benavides Ot M81.0 05/05/2015 JAYLEEN MEYERS, NOÉ Benavides Ot Z86.73 05/05/2015 Ot 724.2 05/05/2015 Ot 724.5 05/05/2015 Ot 729.5 05/05/2015 Ot 780.09 05/05/2015 Ot 784.0 05/05/2015 Ot 786.50 05/05/2015 Ot E849.6 05/05/2015 Ot E888.9 05/05/2015 JAMES MEYERS, GAVI R Ot 780.79 05/05/2015 JAMES MEYERS, GAVI R Ot 784.0 05/05/2015 SARITA MEYERS, TRUE Marquez Ot V12.54 05/05/2015 JAYLEEN MEYERS, NOÉ Benavides Ot 733.00 05/05/2015 JAYLEEN MEYERS, NOÉ Benavides Ot V49.81 05/05/2015 JAYLEEN MEYERS, NOÉ Benavides Ot E83.52 05/05/2015 JAYLEEN MEYERS, NOÉ Benavides Ot I65.23 05/05/2015 JAYLEEN MEYERS, NOÉ Benavides Ot M81.0 05/05/2015 JAYLEEN MEYERS, NOÉ Benavides Ot Z86.73 05/05/2015 ROSITA MEYERS, DAMIAN Thorpe Ot E78.5 05/05/2015 ROSITA MEYERS, DAMIAN Thorpe Ot I10 05/05/2015 ROSITA MEYERS, DAMIAN Thorpe Ot I25.10 05/05/2015 ROSITA MEYERS, DAMIAN Thorpe Ot M79.1 05/05/2015 ROSITA MEYERS, DAMIAN P Ot R07.9 05/05/2015 ROSITA MEYERS, DAMIAN P Ot R10.9 05/12/2015 JAYLEEN MEYERS, NOÉ Benavides Ot E83.52 05/12/2015 JAYLEEN MEYERS, NOÉ Benavides Ot I65.23 05/12/2015 JAYLEEN MEYERS, NOÉ Benavides Ot M81.0 05/12/2015 JAYLEEN MEYERS, NOÉ Benavides Ot Z86.73 05/12/2015 Ot 724.2 05/12/2015 Ot 724.5 05/12/2015 Ot 729.5 05/12/2015 Ot 780.09 05/12/2015 Ot 784.0 05/12/2015 Ot 786.50 05/12/2015 Ot E849.6 05/12/2015 Ot E888.9 05/12/2015 JAMES MEYERS, GAVI R Ot 780.79 05/12/2015 JAMES MEYERS, GAVI R Ot 784.0 05/12/2015 SARITA MEYERS, TRUE R Ot V12.54 05/12/2015 JAYLEEN MEYERS, NOÉ Benavides Ot 733.00 05/12/2015 JAYLEEN MEYERS, NOÉ Benavides Ot V49.81 05/12/2015 JAYLEEN MEYERS, NOÉ Benavides Ot E83.52 05/12/2015 JAYLEEN MEYERS, NOÉ Benavides Ot I65.23 05/12/2015 JAYLEEN MEYERS, NOÉ Benavides Ot M81.0 05/12/2015 JAYLEEN MEYERS, NOÉ Benavides Ot Z86.73 05/12/2015 JAYLEEN MEYERS, NOÉ Benavides Ot E67.3 05/12/2015 JAYLEEN MEYERS, NOÉ Benavides Ot E83.52 05/12/2015 JAYLEEN MEYERS, NOÉ Benavides Ot I10 05/13/2015 GARCIA MEYERS, AIDAN P Ot I10 05/13/2015 GARCIA MEYERS, AIDAN P Ot I25.10 05/13/2015 GARCIA MEYERS, AIDAN P Ot S91.311A 05/13/2015 GARCIA MEYERS, AIDAN P Ot W26.0XXA 05/13/2015 GARCIA MEYERS, AIDAN P Ot Y92.009 05/13/2015 GARCIA MEYERS, AIDAN P Ot Z86.73 05/23/2015 Ot 724.2 05/23/2015 Ot 724.5 05/23/2015 Ot 729.5 05/23/2015 Ot 780.09 05/23/2015 Ot 784.0 05/23/2015 Ot 786.50 05/23/2015 Ot E849.6 05/23/2015 Ot E888.9 05/23/2015 JAMES MEYERS, GAVI R Ot 780.79 05/23/2015 JAMES MEYERS, GAVI R Ot 784.0 05/23/2015 SARITA MEYERS, TRUE Marquez Ot V12.54 05/23/2015 JAYLEEN MEYERS, NOÉ Benavides Ot 733.00 05/23/2015 JAYLEEN MEYERS, NOÉ Benavides Ot V49.81 05/23/2015 JAYLEEN MEYERS, NOÉ Benavides Ot E83.52 05/23/2015 JAYLEEN MEYERS, NOÉ Benavides Ot I65.23 05/23/2015 JAYLEEN MEYERS, NOÉ Benavides Ot M81.0 05/23/2015 JAYLEEN MEYERS, NOÉ Benavides Ot Z86.73 05/23/2015 JAYLEEN MEYERS, NOÉ Benavides Ot E67.3 05/23/2015 JAYLEEN MEYERS, NOÉ Benavides Ot E83.52 05/23/2015 JAYLEEN MEYERS, NOÉ Benavides Ot I10 05/23/2015 JAYLEEN MEYERS, NOÉ Benavides Ot E83.52 05/23/2015 JAYLEEN MEYERS, NOÉ Benavides Ot I65.23 05/23/2015 JAYLEEN MEYERS, NOÉ Benavides Ot M81.0 05/23/2015 JAYLEEN MEYERS, NOÉ Benavides Ot Z86.73 05/23/2015 JAYLEEN MEYERS, NOÉ Benavides Ot E67.3 05/23/2015 JAYLEEN MEYERS, NOÉ Benavides Ot E83.52 05/23/2015 JAYLEEN MEYERS, NOÉ Benavides Ot I10 05/23/2015 SARITA MEYERS, TRUE Marquez Ot V12.54 05/24/2015 JAYLEEN MEYERS, NOÉ Benavides Ot E67.3 05/24/2015 JAYLEEN MEYERS, NOÉ Benavides Ot E83.52 05/24/2015 AJYLEEN MEYERS, NOÉ Benavides Ot I10 06/06/2015 JAYLEEN MEYERS, NOÉ Benavides Ot E67.3 06/06/2015 JAYLEEN MEYERS, NOÉ Benavides Ot E83.52 06/06/2015 JAYLEEN MEYERS, NOÉ Benavides Ot I10 06/15/2015 JAYLEEN MEYERS, NOÉ Benavides Ot E83.52 06/15/2015 JAYLEEN MEYERS, NOÉ Benavides Ot I65.23 06/15/2015 JAYLEEN MEYERS, NOÉ Benavides Ot M81.0 06/15/2015 JAYLEEN MEYERS, NOÉ Benavides Ot Z86.73 06/15/2015 SARITA MEYERS, TRUE Marquez Ot V12.54 09/10/2015 SALENA BERGERON DO Ot I10 ESSENTIAL (PRIMARY) HYPERTENSION 09/10/2015 SALENA BERGERON DO Ot I25.10 ATHSCL HEART DISEASE OF [place] CORONARY 09/10/2015 SALENA BERGERON DO Ot R42 DIZZINESS AND GIDDINESS 09/10/2015 SALENA BERGERON DO Ot Z86.73 PRSNL HX OF TIA (TIA), AND CEREB INFRC W 09/10/2015 SALENA BERGERON DO Ot Z95.1 PRESENCE OF AORTOCORONARY BYPASS GRAFT 09/15/2015 SALENA BERGERON DO Ot R03.0 ELEVATED BLOOD-PRESSURE READING, W/O KEY 09/15/2015 SALENA BERGERON DO Ot R42 DIZZINESS AND GIDDINESS 09/15/2015 SALENA BERGERON DO Ot I10 ESSENTIAL (PRIMARY) HYPERTENSION 09/15/2015 SALENA BERGERON DO Ot I25.10 ATHSCL HEART DISEASE OF [place] CORONARY 09/15/2015 SALENA BERGERON DO Ot R42 DIZZINESS AND GIDDINESS 09/15/2015 SALENA BERGERON DO Ot Z86.73 PRSNL HX OF TIA (TIA), AND CEREB INFRC W 09/15/2015 SALENA BERGERON DO Ot Z95.1 PRESENCE OF AORTOCORONARY BYPASS GRAFT 10/13/2015 SALENA BERGERON DO Ot R03.0 ELEVATED BLOOD-PRESSURE READING, W/O KEY 10/13/2015 SALENA BERGERON DO Ot R42 DIZZINESS AND GIDDINESS Procedures Results Encounters ACCT No. Visit Date/Time Discharge Status Pt. Type Provider Facility Loc./Unit Complaint [id number] 09/10/2015 10:49:00 2015 15:29:00 DIS Emergency RUBIO AMARAL, SALENA [facility] ED [id number] 05/12/2015 23:35:00 2015 08:19:00 [id number]2015 13:04:00 2015 16:37:00 DIS Inpatient ROSITA MEYERS, [facility] MED/SURG [id number] 01/20/2015 08:43:00 2014 23:59:59 CLS Outpatient JAYLEEN MEYERS, [facility] RAD [id number] 12/22/2014 10:49:00 2014 17:01:00 DIS Emergency BELGICA MEYERS, [facility] ED [id number] 11/25/2014 18:15:00 2014 23:59:59 CLS Preadmit SARITA MEYERS, [facility] RAD [id number] 11/23/2014 09:32:00 2014 23:59:59 CLS Outpatient SARITA MEYERS, [facility] RT [id number] 11/17/2014 23:00:00 2014 17:25:00 DIS Inpatient VIRGIL MEYERS, [facility] ICU [id number] 11/17/2014 20:30:00 2014 23:59:59 CLS Outpatient JAMES MEYERS, [facility] EMS [id number] 11/03/2014 16:33:00 2014 23:59:59 CLS Outpatient [facility] EMS [id number] 09/10/2015 10:20:00 ACT Outpatient RUBIO AMARAL [facility] EMS [id number] 05/03/2015 11:52:00 ACT Outpatient JAYLEEN MEYERS, [facility] LAB [id number] 04/19/2015 09:50:00 ACT Outpatient JAYLEEN MEYERS, [facility] RAD
--- OUTSIDE RECORDS SUMMARY | 2016-08-05 17:57 | XMS REPORT | Continuity Of Care Document ---
Author Author [facility] Organization [facility] Address [address] [place] [address] Phone Care Team Providers Care Patient Access Coordinator Name Role Phone HELADIO MEYERS, Sheri CP JAYLEEN MEYERS, D PP [phone] MD CP GEOVANI MEYERS, Tyler AD MICHAEL MEYERS, Ancelmo AT Results Lab Results Visit/Account #[id number] (April 17, 2016 7:05pm - April 25, 2016 1: 15pm) Test Result Date/Time G3AR 25707-8: STYPE ART April 19, 2016 6:46pm 50687-0: PH(7.35-7.45) 7.389 April 19, 2016 6:46pm PCO2(35-45 mmHg) 39.9 mmHg April 19, 2016 6:46pm 12846-3: PO2(80-105 mmHg) 80 mmHg April 19, 2016 6:46pm HCO3(22-26 MMOL/L) 24.1 MMOL/L April 19, 2016 6:46pm TCO2(23-27 MMOL/L) 25 MMOL/L April 19, 2016 6:46pm SO2C(95-98 %) 96 % April 19, 2016 6:46pm 1922-4: ABG BASE DEFICIT(0-30 mmol/L) 1 mmol/L April 19, 2016 6:46pm FIO2(%) 21 % April 19, 2016 6:46pm POCGL POCGL(70-110 MG/DL) 99 MG/DL April 19, 2016 6:41pm 72267-2: COMPLETE BLOOD COUNT WITH DIFF WHITE BLOOD COUNT(4.0-11.0 10E3/UL) 4.7 10E3/UL April 19, 2016 5:33am 5.1 10E3/UL April 21, 2016 5:40am RED BLOOD COUNT(4.00-5.20 10E6/UL) 3.12 10E6/UL April 19, 2016 5:33am 3.32 10E6/UL April 21, 2016 5:40am HEMOGLOBIN(12.0-16.0 G/DL) 9.9 G/DL April 19, 2016 5:33am 10.4 G/DL April 21, 2016 5:40am HEMATOCRIT(36.0-46.0 %) 30.7 % April 19, 2016 5:33am 32.8 % April 21, 2016 5:40am MEAN CORPUSCULAR VOLUME(82.0-100.0 FL) 98.4 FL April 19, 2016 5:33am 98.8 FL April 21, 2016 5:40am 79055-3: MEAN CORPUSCULAR HEMOGLOBIN(26.0-34.0 PG) 31.7 PG April 19, 2016 5:33am 31.3 PG April 21, 2016 5:40am MEAN CORPUSCULAR HGB CONC(31.5-36.5 G/DL) 32.2 G/DL April 19, 2016 5:33am 31.7 G/DL April 21, 2016 5:40am RED CELL DISTRIBUTION WIDTH(11.5-14.5 %) 13.5 % April 19, 2016 5:33am 13.5 % April 21, 2016 5:40am 777-3: PLATELET COUNT(150-450 10E3/UL) 162 10E3/UL April 19, 2016 5:33am 159 10E3/UL April 21, 2016 5:40am MEAN PLATELET VOLUME(8.2-12.4 FL) 9.6 FL April 19, 2016 5:33am 9.2 FL April 21, 2016 5:40am 770-8: NEUTROPHILS % (AUTO)(40-70 %) 57 % April 19, 2016 5:33am 62 % April 21, 2016 5:40am LYMPHOCYTES % (AUTO)(15-45 %) 29 % April 19, 2016 5:33am 21 % April 21, 2016 5:40am 5905-5: MONOCYTES % (AUTO)(2-10 %) 13 % April 19, 2016 5:33am 12 % April 21, 2016 5:40am 713-8: EOSINOPHILS % (AUTO)(0-6 %) 0 % April 19, 2016 5:33am 5 % April 21, 2016 5:40am 706-2: BASOPHILS % (AUTO)(0-1 %) 0 % April 19, 2016 5:33am 0 % April 21, 2016 5:40am 43383-8: IMMATURE GRANS % (AUTO)(0-0 %) 1 % April 19, 2016 5:33am 1 % April 21, 2016 5:40am NUCLEATED RBCS (AUTO)(0-0 %) 0 % April 19, 2016 5:33am 0 % April 21, 2016 5:40am 751-8: NEUTROPHILS # (AUTO)(2.5-7.5 10E3/UL) 2.6 10E3/UL April 19, 2016 5:33am 3.1 10E3/UL April 21, 2016 5:40am 22814-9: LYMPHOCYTES # (AUTO)(1.0-4.0 10E3/UL) 1.3 10E3/UL April 19, 2016 5:33am 1.1 10E3/UL April 21, 2016 5:40am 742-7: MONOCYTES # (AUTO)(0.2-0.8 10E3/UL) 0.6 10E3/UL April 19, 2016 5:33am 0.6 10E3/UL April 21, 2016 5:40am 711-2: EOSINOPHILS # (AUTO)(0.0-0.4 10E3/UL) 0.0 10E3/UL April 19, 2016 5:33am 0.2 10E3/UL April 21, 2016 5:40am 704-7: BASOPHILS # (AUTO)(0.0-0.2 10E3/UL) 0.0 10E3/UL April 19, 2016 5:33am 0.0 10E3/UL April 21, 2016 5:40am IMMATURE GRANS # (AUTO)(0.0-0.0 10E3/UL) 0.0 10E3/UL April 19, 2016 5:33am 0.0 10E3/UL April 21, 2016 5:40am DIFF TYPE AUTOMATED April 19, 2016 5:33am AUTOMATED April 21, 2016 5:40am COMPLETE BLOOD COUNT WHITE BLOOD COUNT(4.0-11.0 10E3/UL) 5.8 10E3/UL April 19, 2016 7:09pm RED BLOOD COUNT(4.00-5.20 10E6/UL) 3.85 10E6/UL April 19, 2016 7:09pm HEMOGLOBIN(12.0-16.0 G/DL) 12.4 G/DL April 19, 2016 7:09pm HEMATOCRIT(36.0-46.0 %) 37.8 % April 19, 2016 7:09pm MEAN CORPUSCULAR VOLUME(82.0-100.0 FL) 98.2 FL April 19, 2016 7:09pm 04313-9: MEAN CORPUSCULAR HEMOGLOBIN(26.0-34.0 PG) 32.2 PG April 19, 2016 7:09pm MEAN CORPUSCULAR HGB CONC(31.5-36.5 G/DL) 32.8 G/DL April 19, 2016 7:09pm RED CELL DISTRIBUTION WIDTH(11.5-14.5 %) 13.4 % April 19, 2016 7:09pm 777-3: PLATELET COUNT(150-450 10E3/UL) 205 10E3/UL April 19, 2016 7:09pm MEAN PLATELET VOLUME(8.2-12.4 FL) 9.1 FL April 19, 2016 7:09pm NUCLEATED RBCS (AUTO)(0-0 %) 0 % April 19, 2016 7:09pm 21702-4: PROTHROMBIN TIME WITH INR PROTHROMBIN TIME(12.1-14.0 SEC) 14.0 SEC April 19, 2016 9:31am 85046-3: INR 1.08 Result Comments: INR reference interval applies to patients on anticoagulant therapy. Suggested INR therapeutic range for oral anticoagulant therapy: (Stabilized anticoagulated patients) Routine Therapy: 2.0 to 3.0 Recurrent Myocardial Infarction: 2.5 to 3.5 Mechanical Prosthetic Valves: 2.5 to 3.5 April 19, 2016 9:31am PARTIAL THROMBOPLASTIN TIME PARTIAL THROMBOPLASTIN TIME(22.2-37.4 SEC) 26.2 SEC April 19, 2016 9:31am UA WITH SCREEN FOR CULTURE 5778-6: COLOR,URINE LIGHT YELLOW April 20, 2016 2:22pm 57510-4: CLARITY,URINE CLEAR April 20, 2016 2:22pm GLUCOSE, URINE(NEGATIVE MG/DL) NEGATIVE MG/DL April 20, 2016 2:22pm URINE BILIRUBIN(NEGATIVE) NEGATIVE April 20, 2016 2:22pm KETONES,URINE(NEGATIVE MG/DL) NEGATIVE MG/DL April 20, 2016 2:22pm URINE SPECIFIC GRAVITY(1.001-1.035) 1.012 April 20, 2016 2:22pm 56814-4: URINE BLOOD(NEGATIVE) NEGATIVE April 20, 2016 2:22pm 2756-5: URINE PH(5.0-9.0) 8.0 April 20, 2016 2:22pm URINE PROTEIN(Less than 20 MG/DL) NEGATIVE MG/DL April 20, 2016 2:22pm 13917-6: URINE UROBILINOGEN(0.2-1.0 MG/DL) 0.2-1.0 MG/DL April 20, 2016 2:22pm URINE NITRITE(NEGATIVE) NEGATIVE April 20, 2016 2:22pm 5799-2: LEUKOCYTE ESTERASE ,URINE(NEGATIVE) NEGATIVE April 20, 2016 2:22pm 630-4: URINE CULTURE NOT INDICATED April 20, 2016 2:22pm URINE MICROSCOPIC REQUIRED NO April 20, 2016 2:22pm BASIC METABOLIC PANEL GLUCOSE(70-110 MG/DL) 92 MG/DL April 19, 2016 5:33am 101 MG/DL April 19, 2016 7:09pm 92 MG/DL April 21, 2016 5:40am BLOOD UREA NITROGEN(6-20 MG/DL) 16 MG/DL April 19, 2016 5:33am 16 MG/DL April 19, 2016 7:09pm 12 MG/DL April 21, 2016 5:40am CREATININE(0.50-1.20 MG/DL) 0.63 MG/DL April 19, 2016 5:33am 0.78 MG/DL April 19, 2016 7:09pm 0.59 MG/DL April 21, 2016 5:40am 62149-2: EST GLOMERULAR FILTRATION RATE(Greater than or equal to 60) Greater than or equal to 60 Result Comments: If the patient is of -[place] descent/extraction multiply the eGFR value by 1.212 to obtain the actual eGFR. >=60 mg/dL Normal 30-59 mg/dL Moderate Kidney Disease 15-29 mg/dL Severe Kidney Disease <15 mg/dL Kidney Failure April 19, 2016 5:33am Greater than or equal to 60 Result Comments: If the patient is of -[place] descent/extraction multiply the eGFR value by 1.212 to obtain the actual eGFR. >=60 mg/dL Normal 30-59 mg/dL Moderate Kidney Disease 15-29 mg/dL Severe Kidney Disease <15 mg/dL Kidney Failure April 19, 2016 7:09pm Greater than or equal to 60 Result Comments: If the patient is of -[place] descent/extraction multiply the eGFR value by 1.212 to obtain the actual eGFR. >=60 mg/dL Normal 30-59 mg/dL Moderate Kidney Disease 15-29 mg/dL Severe Kidney Disease <15 mg/dL Kidney Failure April 21, 2016 5:40am BUN CREATININE RATIO(10.0-20.0 RATIO) 25.0 RATIO April 19, 2016 5:33am 21.0 RATIO April 19, 2016 7:09pm 20.0 RATIO April 21, 2016 5:40am SODIUM(135-145 MMOL/L) 136 MMOL/L April 19, 2016 5:33am 134 MMOL/L April 19, 2016 7:09pm 132 MMOL/L April 21, 2016 5:40am POTASSIUM(3.6-5.0 MMOL/L) 4.0 MMOL/L April 19, 2016 5:33am 4.3 MMOL/L April 19, 2016 7:09pm 3.8 MMOL/L April 21, 2016 5:40am CHLORIDE(101-111 MMOL/L) 107 MMOL/L April 19, 2016 5:33am 103 MMOL/L April 19, 2016 7:09pm 104 MMOL/L April 21, 2016 5:40am CO2(21-31 MMOL/L) 28 MMOL/L April 19, 2016 5:33am 26 MMOL/L April 19, 2016 7:09pm 25 MMOL/L April 21, 2016 5:40am ANION GAP(8-18) 5 April 19, 2016 5:33am 9 April 19, 2016 7:09pm 7 April 21, 2016 5:40am OSMO CALCULATED(270.0-290.0) 272.8 April 19, 2016 5:33am 269.6 April 19, 2016 7:09pm 263.9 April 21, 2016 5:40am CALCIUM(8.5-10.5 MG/DL) 9.2 MG/DL April 19, 2016 5:33am 9.6 MG/DL April 19, 2016 7:09pm 8.5 MG/DL April 21, 2016 5:40am 74645-6: [place] 61148-8: CARDIAC TROPONIN I(0.01-0.04 NG/ML) 0.01 NG/ML Result Comments: REFERENCE RANGES: NEGATIVE < 0.04 NG/ML POSSIBLE MYCARDIAL INVOLVEMENT >/=0.04 NG/ML INTERPRET TROPONIN I RESULT IN LIGHT OF THE TOTAL CLINICAL PRESENTATION INCLUDING CLINICAL HISTORY. ANY CONDITION RESULTING IN MYOCARDIAL INJURY CAN POTENTIALLY ELEVATE TROPONIN I LEVELS ABOVE EXPECTED NORMAL RANGES. NOTE NEW REFERENCE RANGE April 19, 2016 7:09pm 22678-5: AMMONIA 54069-1: AMMONIA(10-35 uMOL/L) 16 uMOL/L April 19, 2016 7:09pm Allergies and Adverse Reactions Allergies and Adverse Reactions Patient Unit Number: [id number] Agent Type Reaction Severity Status IODINE Drug Allergy Unknown Severe Active Problem List Problem List Visit/Account #[id number] (April 17, 2016 7:05pm - April 25, 2016 1: 15pm) Acute Problems: Code/Condition Comments Documented Start Date Documented Resolved Date Code (s) Confusion ICD10: F44.89 Confusion ICD9: 298.9 Confusion SNOMED: 526235033 Confusion Chronic back pain ICD10: M54.9 Chronic back pain ICD9: 724.5 Chronic back pain SNOMED: 224643618 Chronic back pain Compression fracture ICD10: T14.8 Compression fracture ICD9: 829.0 Compression fracture SNOMED: 923203924 Compression fracture Irritability and anger ICD10: R45.4 Irritability and anger ICD9: 799.22 Irritability and anger SNOMED: 503899093 Irritability and anger Adjustment disorder ICD10: F43.20 Adjustment disorder ICD9: 309.9 Adjustment disorder SNOMED: 79490235 Adjustment disorder Osteoporotic compression fracture of spine ICD10: 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.88XA Osteoporotic compression fracture of spine ICD9: 733.13 Osteoporotic compression fracture of spine SNOMED: 50557260 Osteoporotic compression fracture of spine Chronic Problems: Hypertension ICD10: I10 Hypertension ICD9: 401.9 Hypertension SNOMED: 04767243 Hypertension PTSD (post-traumatic stress disorder) ICD10: F43.10 Posttraumatic stress disorder ICD9: 309.81 Posttraumatic stress disorder SNOMED: 69866141 Posttraumatic stress disorder Plan of Care Plan Of Care Visit/Account #[id number] (April 17, 2016 7:05pm - April 25, 2016 1: 15pm) Patient Instructions Instructions Vertebral Compression Fracture Vital Signs Vital Signs Visit/Account #[id number] (April 17, 2016 7:05pm - April 25, 2016 1: 15pm) Sign First Result Last Result Code(s) Blood Pressure 166/ 76 mm[Hg] On April 18, 2016 12:53am 143/ 56 mm[Hg] On April 25, 2016 9:11am 8480-6 BP Systolic Heart Rate/Pulse Pulse Rate (adult): 75 /min On April 18, 2016 12:53am Pulse Rate (adult): 65 /min On April 25, 2016 9:11am 8867-4 Heart Rate 8893-0 Pulse rate Respiratory Rate Respiratory Rate: 16 /min On April 18, 2016 12:53am Respiratory Rate: 18 /min On April 25, 2016 9:11am 9279-1 Respiratory rate Temperature in Fahrenheit Temperature (Fahrenheit): 98.0 [degF] On April 17, 2016 7:06pm Temperature (Fahrenheit): 99.5 [degF] On April 25, 2016 9:11am 8310-5 Body Temperature Weight in Kilograms Weight (Kilograms): 57.8 kg On April 17, 2016 7:06pm 3141-9 Weight Measured 57846-4 Body weight measured in kilograms Functional Status Functional and Cognitive Status No Functional Status Data Medications Home Medications - Medications that the patient was taking prior to arrival at the hospital Visit/Account #[id number] (April 17, 2016 7:05pm - April 25, 2016 1: 15pm) Medication Route Sig/Schedule Precondition/Indication Comments/Instructions Codes REFRESH CELLUVISC(CARBOXYMETHYLCELLULOSE SOD) 0.4 ML SOLUTION Dose: 1 DROP EACH EYE 3 TIMES A DAY DRY EYES Carboxymethylcellulose 0.01 MG/MG Ophthalmic Gel [Refresh Liquigel] (RxNorm): 1557704 REFRESH CELLUVISC (CARBOXYMETHYLCELLULOSE SOD) [facility]: 65929900337 B-12(CYANOCOBALAMIN (VITAMIN B-12)) 500 MCG TABLET Dose: 500 MCG ORAL DAILY B-12 (CYANOCOBALAMIN (VITAMIN B-12)) NDC: 78433632096 VITAMIN D3(CHOLECALCIFEROL (VITAMIN D3)) 1000 UNIT CAPSULE Dose: 1000 UNIT ORAL DAILY Cholecalciferol 1000 UNT Oral Capsule (RxNorm): 222260 VITAMIN D3 (CHOLECALCIFEROL (VITAMIN D3)) NDC: 19357137058 DIDIER BALLESTEROS Dose: 1 SPRAY TOPICALLY PAIN LIDODERM 5% PATCH(LIDOCAINE) 30 EA ADH..PATCH Dose: 1 PATCH TOPICALLY DAILY PAIN Rx Instructions: remove after 12 hours Lidocaine 0.05 MG/MG Medicated Patch [Lidoderm] (RxNorm): 1728216 LIDODERM 5% PATCH (LIDOCAINE) NDC: 73388476098 ASPIRIN(ASPIRIN) 325 MG TABLET.DR Dose: 325 MG ORAL DAILY Aspirin 325 MG Delayed Release Oral Tablet (RxNorm): 134533 ASPIRIN (ASPIRIN) NDC: 17827146341 HYDROcodone BIT/ACETAMINOPHEN 5-325 MG(HYDROcodone BIT/ACETAMINOPHEN) 1 EACH TABLET Dose: 1 TAB ORAL Q6H PAIN Acetaminophen 325 MG / Hydrocodone Bitartrate 5 MG Oral Tablet [Lorcet] ( RxNorm): 2164131 HYDROcodone BIT/ACETAMINOPHEN 5-325 MG (HYDROcodone BIT/ACETAMINOPHEN) NDC: 40717047536 NAPROXEN(NAPROXEN) 500 MG TABLET Dose: 500 MG ORAL TWICE A DAY PAIN Naproxen 500 MG Oral Tablet (RxNorm): 960071 NAPROXEN (NAPROXEN) NDC: 37978903192 Inpatient/Ordered Medications - Medications administered during hospital visit Visit/Account #[id number] (April 17, 2016 7:05pm - April 25, 2016 1: 15pm) Medication Route Sig/Schedule Precondition/Indication Comments/Instructions Codes TYLENOL(ACETAMINOPHEN) 325 MG TAB Dose: 0 MG ORAL Q6H PRN Reason: MILD PAIN Label Comments: Do not exceed 4000 mg/24 hours. Special Dose Instructions: 325 - 650 MG Acetaminophen 325 MG Oral Tablet (RxNorm): 788528 TYLENOL (ACETAMINOPHEN) NDC: 13767602156 NORCO 5-325(HYDROcodone BIT/ACETAMINOPHEN) 1 TAB TAB Dose: 1 TAB ORAL Q6H PRN Reason: PAIN Label Comments: <<may be substituted for 5/500>> REC MAX DAILY DOSE ACETAMINOPHEN: 4000 MG/24 HR MAY INCREASE FALL RISK Acetaminophen 325 MG / Hydrocodone Bitartrate 5 MG Oral Tablet (RxNorm): 703338 NORCO 5-325 (HYDROcodone BIT/ACETAMINOPHEN) NDC: 85149724810 NAPROSYN(NAPROXEN) 500 MG TAB Dose: 500 MG ORAL TWICE A DAY PRN Reason: PAIN Naproxen 500 MG Oral Tablet (RxNorm): 717323 NAPROSYN (NAPROXEN) NDC: 18805539731 IV Medication Carriers: NORMAL SALINE(SODIUM CHLORIDE) 1000 ML INJECTION Dose: 1000 ML INTRAVEN .Q10H (Rate: 100 MLS/HR Duration: 10 HR) Carriers: Sodium Chloride 0.154 MEQ/ML Injectable Solution (RxNorm): 044841 NORMAL SALINE (SODIUM CHLORIDE) NDC: 23300083986 DULCOLAX(BISACODYL) 10 MG SUPPOSITORY Dose: 10 MG RECTALLY NEEDED PRN Reason: CONSTIPATION Bisacodyl 10 MG Rectal Suppository [Bisac-Evac] (RxNorm): 252993 DULCOLAX (BISACODYL) NDC: 23450226953 TRANDATE INJ(LABETALOL HCL) 100 MG/20 ML INJECTION Dose: 2 ML INTRAVEN NOW Label Comments: FOR IVP GIVE NO FASTER THAN 10 MG/MIN MAY INCREASE FALL RISK Labetalol hydrochloride 5 MG/ML Injectable Solution (RxNorm): 162666 TRANDATE INJ (LABETALOL HCL) NDC: 29438921889 IV Medication Carriers: NORMAL SALINE(SODIUM CHLORIDE) 1000 ML INJECTION Dose: 500 ML INTRAVEN .Q1H (Rate: 500 MLS/HR Duration: 1 HR) Label Comments: Use a 1000 mL bag. Carriers: Sodium Chloride 0.154 MEQ/ML Injectable Solution (RxNorm): 122999 NORMAL SALINE (SODIUM CHLORIDE) NDC: 99666303319 DEPAKOTE(DIVALPROEX SODIUM) 500 MG TAB Dose: 500 MG ORAL TWICE A DAY Label Comments: DO NOT CRUSH Divalproex Sodium 500 MG Delayed Release Oral Tablet (RxNorm): 4632332 DEPAKOTE (DIVALPROEX SODIUM) NDC: 25741711688 IV Medication Additives: DEPACON INJ(VALPROATE SOD) 100 MG/ML INJECTION Dose: 750 MG Carriers: SODIUM CHLORIDE 100 ML INJECTION Dose: 100 ML INTRAVEN NOW (Rate: 107.5 MLS/HR Duration: 1 HR) Label Comments: MAY INCREASE FALL RISK WEAR GLOVES WHEN HANDLING. *Do NOT refrigerate* Expires 24 HRS after preparation Additives: Valproic Acid 100 MG/ML Injectable Solution [Depacon] (RxNorm): 9431271 DEPACON INJ (VALPROATE SOD) NDC: 20795452575 Carriers: Sodium Chloride 0.154 MEQ/ML Injectable Solution (RxNorm): 663801 (SODIUM CHLORIDE) NDC: 97428582329 IV Medication Additives: DEPACON INJ(VALPROATE SOD) 100 MG/ML INJECTION Dose: 500 MG Carriers: NORMAL SALINE(SODIUM CHLORIDE) 50 ML INJECTION Dose: 50 ML INTRAVEN Q12S (Rate: 55 MLS/HR Duration: 1 HR) Label Comments: MAY INCREASE FALL RISK WEAR GLOVES WHEN HANDLING. *Do NOT refrigerate* Expires 24 HRS after preparation Additives: Valproic Acid 100 MG/ML Injectable Solution [Depacon] (RxNorm): 3162386 DEPACON INJ (VALPROATE SOD) NDC: 95149832931 Carriers: Sodium Chloride 0.154 MEQ/ML Injectable Solution (RxNorm): 057442 NORMAL SALINE (SODIUM CHLORIDE) NDC: 80772266323 IV Medication Carriers: NORMAL SALINE(SODIUM CHLORIDE) 1000 ML INJECTION Dose: 1000 ML INTRAVEN .[id number] (Rate: 95 MLS/HR Duration: 10 HR 32 MIN) Carriers: Sodium Chloride 0.154 MEQ/ML Injectable Solution (RxNorm): 514998 NORMAL SALINE (SODIUM CHLORIDE) NDC: 45463943582 ZESTRIL(LISINOPRIL) 5 MG TAB Dose: 5 MG ORAL DAILY Label Comments: MAY INCREASE FALL RISK Lisinopril 5 MG Oral Tablet (RxNorm): 040992 ZESTRIL (LISINOPRIL) NDC: 05307271032 APRESOLINE INJ(HydrALAZINE) 20 MG/ML INJECTION Dose: 0.5 ML INTRAVEN NOW Label Comments: MAY INCREASE FALL RISK Hydralazine Hydrochloride 20 MG/ML Injectable Solution (RxNorm): 648848 APRESOLINE INJ (HydrALAZINE) NDC: 85041936033 Discharge Medications - Medications that patient should continue to take. Review with physician Visit/Account #[id number] (April 17, 2016 7:05pm - April 25, 2016 1: 15pm) Medication Route Sig/Schedule Precondition/Indication Comments/Instructions Codes ASPIRIN(ASPIRIN) 325 MG TABLET.DR Dose: 325 MG ORAL DAILY Aspirin 325 MG Delayed Release Oral Tablet (RxNorm): 409943 ASPIRIN (ASPIRIN) NDC: 68108056087 NAPROXEN(NAPROXEN) 500 MG TABLET Dose: 500 MG ORAL TWICE A DAY PAIN Naproxen 500 MG Oral Tablet (RxNorm): 258803 NAPROXEN (NAPROXEN) NDC: 74134828041 Depakote Dr(DIVALPROEX SODIUM) 500 MG TAB Dose: 500 MG ORAL TWICE A DAY Depakote Dr (DIVALPROEX SODIUM) NDC: 45878986460 Zestril(LISINOPRIL) 5 MG TABLET Dose: 5 MG ORAL DAILY Lisinopril 5 MG Oral Tablet (RxNorm): 446955 Zestril (LISINOPRIL) NDC: 67944598244 History Of Encounters Encounters Visit/Account #[id number] (April 17, 2016 7:05pm - April 25, 2016 1: 15pm) Account Status Physican Of Record Reason For Visit Visit Diagnosis Start Date/Time Stop Date/Time ER ZAK LANE MD COMPRESSION FX G89.29: OTHER CHRONIC PAIN ICD10 Apr 17, 2016 7:05pm Apr 17, 2016 7:50pm Alessandra TONYA RODRIGUEZ MD COMPRESSION FX G89.29: OTHER CHRONIC PAIN ICD10 Apr 19, 2016 8:17am Apr 25, 2016 1:15pm IN TONYA RODRIGUEZ MD COMPRESSION FX G89.29: OTHER CHRONIC PAIN ICD10 Apr 19, 2016 8:17am Apr 25, 2016 1:15pm History of Procedures Procedure List No procedures recorded. Discharge Instructions Discharge Instructions Visit/Account #[id number] (April 17, 2016 7:05pm - April 25, 2016 1: 15pm) DISCHARGE INSTRUCTIONS Physician Documentation PROVIDER INSTRUCTIONS Discharge Diet Low Salt Equipment/Supplies Walker Discharge Diet Low Salt Equipment/Supplies Walker CARE MANAGEMENT/HOME HEALTH Care Management Skilled PT/OT REASON TO CALL PROVIDER Notify Physician if: Any questions or concerns FOLLOW UP APPOINTMENTS Follow Up Appointment Date/Time: follow up with PCP in [address] CLEMENS April AT 3:00PM follow up with Dr Bolanos in 2 weeks PLEASE CALL [phone] TO SCHEDULE IF PRIMARY CARE PHYSICIAN DEEMS NECESSARY. Social History Social History No Social History Data. Immunizations Immunizations Patient Unit Number: [id number] Immunizations No immunizations recorded.
--- OUTSIDE RECORDS SUMMARY | 2016-08-05 17:57 | XMS REPORT | Continuity of Care Document ---
Author Author [facility] Organization [facility] Address Unknown Phone Unavailable Care Team Providers Care Automatic Teller Machine Servicer Name Role Phone NOÉ YEE MD Primary Care Physician [phone] Insurance Providers Payer Name Policy Number Subscriber Name Relationship Medicare A And B [id number] Shira Adair 18 Self / Same As Patient Chief Complaint and Reason for Visit Chief Complaint Pain Reason for Visit Back pain Problems Medical Problems Problem Onset Date Status Hypertensive emergency 11/17/2014 Active Altered mental status ~11/17/2014 Active Back pain Unknown Active Medications Medication Dose Route Sig Days/Qty Instructions Order Date Discontinued Date Status Acetaminophen (Tylenol) 325 Mg ORAL EVERY 6 HOURS PRN PAIN 11/18/14 Active Aspirin 325 Mg ORAL DAILY 11/18/14 Active Carboxymethylcellulose Sodium (Carboxymethylcellulose 1%) 1 Each OPTHALMIC THREE TIMES A DAY PRN DRY EYES 11/18/14 Active Losartan Potassium (Cozaar) 25 Mg ORAL DAILY 12/22/14 Active Atorvastatin 10 Mg ORAL DIRECTED TAKE ON MONDAYS AND Thursdays Active Hydrocodone Bit/Acetaminophen 1 Each ORAL EVERY 4HRS PRN PAIN 10 Qty Active Social History No social history. Hospital Discharge Instructions No hospital discharge instructions. Plan of Care Discharge Date 12/22/14 5:01pm Disposition 01 HOME OR SELF-CARE Condition at Discharge Stable Instructions/Education Provided Acute Low Back Pain (ED) Prescriptions See Medications Section Referrals NOÉ YEE MD Additional Instructions/Education Follow up with Dr. Yee tomorrow at 2:00 Hydrocodone 2.5/325 every 4 hours as needed for pain - can cause constipation so you may want to take a stool softener or increase your fiber. Continue previously prescribed medications Return if symptoms worsen Some of your test results may not [...] worrisome symptoms. * Emergency Department phone number: [phone], x [phone]* MEDICAL RECORD If you need copies of your X-rays, call [phone]. If you need copies of [...] the billing parties for services. SERVICE BILLING [facility] Emergency Room Services [facility] Physician Services [facility] X-rays [facility] Patients will receive bills for services from the appropriate provider. If you have any questions about your [facility] bill, our staff will be happy to assist you. Please call [phone], and ask for the billing department. THANK YOU for choosing [facility] as your emergency care provider! Functional Status No functional status results. Allergies, Adverse Reactions, Alerts Allergen Type Severity Reaction Status Last Updated Iodine and Iodide Containing Produc Allergy Severe Active 11/17/14 Immunizations No immunization records. Vital Signs Acute Vital Signs Vital Response Date/Time Pulse 63 bpm Respirations 18 Height 5 ft 5 in Weight 113 lb Body Mass Index 18.0 kg/m^2 Results Test Source Date Result Interp. Ref. Range Comments Vitamin B12 Level November 23, 2014 9:39am 674 pg/mL 213-816 Folate November 23, 2014 9:39am 13.7 ng/mL 7.0-31.4 Erythrocyte Sedimentation Rate November 23, 2014 9:39am 15 mm/hr N 0-23 Urine Squamous Epithelial Cells November 18, 2014 [...] YHas specimen been collected/obtained? Y Urine Specific Star November 18, 2014 1:45pm 1.015 1.005-1.030 Collected [...] L 4.0-11.0 Specimen Comment: blood in lab Urine Culture Urine-Clean Catch November 18, 2014 1:45pm Procedures No known history of procedures. Encounters Encounter Location Date/Time Departed Emergency Room [facility] 12/22/14 10:49am Registered Clinic [facility] 11/23/14 9:32am Recent Diagnosis
--- OUTSIDE RECORDS SUMMARY | 2016-08-05 17:57 | XMS REPORT | Continuity Of Care Document ---
Author Author [facility] Organization [facility] Address [address] [place] [address] Phone Care Team Providers Care Sand Filler Name Role Phone JAYLEEN MEYERS, Makayla PP [phone] UNASSIGNED, PHYSICIAN Unavailable Unavailable DOMINGO MEYERS, ZAK AT Results Lab Results Visit/Account #[id number] (April 17, 2016 5:21pm - April 17, 2016 6: 23pm) Test Result Date/Time CREATININE,POINT OF CARE POC CREATININE(0.6-1.3 MG/DL) 0.7 MG/DL April 17, 2016 5:37pm 28278-9: EST GLOMERULAR FILTRATION RATE(Greater than or equal to 60) Greater than 60 April 17, 2016 5:37pm POC LACTIC ACID VENOUS POC LACTIC ACID VENOUS(0.90-1.70 MMOL/L) 1.26 MMOL/L April 17, 2016 5:36pm 01697-0: COMPLETE BLOOD COUNT WITH DIFF WHITE BLOOD COUNT(4.0-11.0 10E3/UL) 6.8 10E3/UL April 17, 2016 5:37pm RED BLOOD COUNT(4.00-5.20 10E6/UL) 3.74 10E6/UL April 17, 2016 5:37pm HEMOGLOBIN(12.0-16.0 G/DL) 12.0 G/DL April 17, 2016 5:37pm HEMATOCRIT(36.0-46.0 %) 37.1 % April 17, 2016 5:37pm MEAN CORPUSCULAR VOLUME(82.0-100.0 FL) 99.2 FL April 17, 2016 5:37pm 92486-5: MEAN CORPUSCULAR HEMOGLOBIN(26.0-34.0 PG) 32.1 PG April 17, 2016 5:37pm MEAN CORPUSCULAR HGB CONC(31.5-36.5 G/DL) 32.3 G/DL April 17, 2016 5:37pm RED CELL DISTRIBUTION WIDTH(11.5-14.5 %) 13.5 % April 17, 2016 5:37pm 777-3: PLATELET COUNT(150-450 10E3/UL) 195 10E3/UL April 17, 2016 5:37pm MEAN PLATELET VOLUME(8.2-12.4 FL) 9.2 FL April 17, 2016 5:37pm 770-8: NEUTROPHILS % (AUTO)(40-70 %) 66 % April 17, 2016 5:37pm LYMPHOCYTES % (AUTO)(15-45 %) 17 % April 17, 2016 5:37pm 5905-5: MONOCYTES % (AUTO)(2-10 %) 15 % April 17, 2016 5:37pm 713-8: EOSINOPHILS % (AUTO)(0-6 %) 1 % April 17, 2016 5:37pm 706-2: BASOPHILS % (AUTO)(0-1 %) 0 % April 17, 2016 5:37pm 51909-3: IMMATURE GRANS % (AUTO)(0-0 %) 0 % April 17, 2016 5:37pm NUCLEATED RBCS (AUTO)(0-0 %) 0 % April 17, 2016 5:37pm 751-8: NEUTROPHILS # (AUTO)(2.5-7.5 10E3/UL) 4.5 10E3/UL April 17, 2016 5:37pm 72474-5: LYMPHOCYTES # (AUTO)(1.0-4.0 10E3/UL) 1.1 10E3/UL April 17, 2016 5:37pm 742-7: MONOCYTES # (AUTO)(0.2-0.8 10E3/UL) 1.1 10E3/UL April 17, 2016 5:37pm 711-2: EOSINOPHILS # (AUTO)(0.0-0.4 10E3/UL) 0.1 10E3/UL April 17, 2016 5:37pm 704-7: BASOPHILS # (AUTO)(0.0-0.2 10E3/UL) 0.0 10E3/UL April 17, 2016 5:37pm IMMATURE GRANS # (AUTO)(0.0-0.0 10E3/UL) 0.0 10E3/UL April 17, 2016 5:37pm DIFF TYPE AUTOMATED April 17, 2016 5:37pm 75338-6: PROTHROMBIN TIME WITH INR PROTHROMBIN TIME(12.1-14.0 SEC) 13.7 SEC April 17, 2016 5:37pm 27447-4: INR 1.05 Result Comments: INR reference interval applies to patients on anticoagulant therapy. Suggested INR therapeutic range for oral anticoagulant therapy: (Stabilized anticoagulated patients) Routine Therapy: 2.0 to 3.0 Recurrent Myocardial Infarction: 2.5 to 3.5 Mechanical Prosthetic Valves: 2.5 to 3.5 April 17, 2016 5:37pm PARTIAL THROMBOPLASTIN TIME PARTIAL THROMBOPLASTIN TIME(22.2-37.4 SEC) 26.1 SEC April 17, 2016 5:37pm 73749-5: COMPLETE METABOLIC PROFILE GLUCOSE(70-110 MG/DL) 108 MG/DL April 17, 2016 5:37pm BLOOD UREA NITROGEN(6-20 MG/DL) 21 MG/DL April 17, 2016 5:37pm CREATININE(0.50-1.20 MG/DL) 0.61 MG/DL April 17, 2016 5:37pm 54775-2: EST GLOMERULAR FILTRATION RATE(Greater than or equal to 60) Greater than or equal to 60 Result Comments: If the patient is of -[place] descent/extraction multiply the eGFR value by 1.212 to obtain the actual eGFR. >=60 mg/dL Normal 30-59 mg/dL Moderate Kidney Disease 15-29 mg/dL Severe Kidney Disease <15 mg/dL Kidney Failure April 17, 2016 5:37pm BUN CREATININE RATIO(10.0-20.0 RATIO) 34.0 RATIO April 17, 2016 5:37pm SODIUM(135-145 MMOL/L) 136 MMOL/L April 17, 2016 5:37pm POTASSIUM(3.6-5.0 MMOL/L) 3.7 MMOL/L April 17, 2016 5:37pm CHLORIDE(101-111 MMOL/L) 105 MMOL/L April 17, 2016 5:37pm CO2(21-31 MMOL/L) 26 MMOL/L April 17, 2016 5:37pm ANION GAP(8-18) 9 April 17, 2016 5:37pm OSMO CALCULATED(270.0-290.0) 275.5 April 17, 2016 5:37pm CALCIUM(8.5-10.5 MG/DL) 9.8 MG/DL April 17, 2016 5:37pm BILIRUBIN,TOTAL(0.1-1.2 MG/DL) 0.4 MG/DL April 17, 2016 5:37pm ALKALINE PHOSPHATASE(42-121 IU/L) 88 IU/L April 17, 2016 5:37pm ASPARTATE AMINO TRANSFERASE(10-42 IU/L) 22 IU/L April 17, 2016 5:37pm ALANINE AMINOTRANSFERASE(10-60 IU/L) 15 IU/L April 17, 2016 5:37pm TOTAL PROTEIN(6.4-8.2 G/DL) 6.4 G/DL April 17, 2016 5:37pm ALBUMIN(3.5-5.5 G/DL) 3.6 G/DL April 17, 2016 5:37pm GLOBULIN(2.4-3.6) 2.8 April 17, 2016 5:37pm ALBUMIN/GLOBULIN RATIO(0.9-1.8 RATIO) 1.3 RATIO April 17, 2016 5:37pm 01609-0: CARDIAC TROPONIN I 58117-9: CARDIAC TROPONIN I(0.01-0.04 NG/ML) 0.01 NG/ML Result Comments: REFERENCE RANGES: NEGATIVE < 0.04 NG/ML POSSIBLE MYCARDIAL INVOLVEMENT >/=0.04 NG/ML INTERPRET TROPONIN I RESULT IN LIGHT OF THE TOTAL CLINICAL PRESENTATION INCLUDING CLINICAL HISTORY. ANY CONDITION RESULTING IN MYOCARDIAL INJURY CAN POTENTIALLY ELEVATE TROPONIN I LEVELS ABOVE EXPECTED NORMAL RANGES. NOTE NEW REFERENCE RANGE April 17, 2016 5:37pm 3040-3: LIPASE 3040-3: LIPASE(22-51 U/L) 31 U/L April 17, 2016 5:37pm Allergies and Adverse Reactions Allergies and Adverse Reactions Patient Unit Number: [id number] Agent Type Reaction Severity Status IODINE Drug Allergy Unknown Severe Active Problem List Problem List Visit/Account #[id number] (April 17, 2016 5:21pm - April 17, 2016 6: 23pm) Acute Problems: Code/Condition Comments Documented Start Date Documented Resolved Date Code (s) Chronic back pain ICD10: M54.9 Chronic back pain ICD9: 724.5 Chronic back pain SNOMED: 465709650 Chronic back pain Abdominal pain ICD10: R10.9 Abdominal pain ICD9: 789.00 Abdominal pain SNOMED: 42643453 Abdominal pain Patient Unit Number: [id number] Chronic Problems: Code/Condition Comments Documented Start Date Documented Resolved Date Code (s) Hypertension ICD10: I10 Hypertension ICD9: 401.9 Hypertension SNOMED: 38015811 Hypertension PTSD (post-traumatic stress disorder) ICD10: F43.10 Posttraumatic stress disorder ICD9: 309.81 Posttraumatic stress disorder SNOMED: 10962252 Posttraumatic stress disorder Plan of Care Plan Of Care Visit/Account #[id number] (April 17, 2016 5:21pm - April 17, 2016 6: 23pm) Patient Instructions You are being discharged against medical advice. At the time of your discharge, CT imaging of your abdomen and pelvis as well as reconstruction views of your lumbar spine were pending. You were informed that leaving prior to a completed diagnostic evaluation could result in worsening of your known condition, failure to diagnose other conditions routinely evaluated for while an inpatient, and even could result. At any time you are encouraged to return to the ED should you have any worsening or any concerns. Please schedule a follow-up appointment with your PCP within the next 1-2 days for continued evaluation and care. Vital Signs Vital Signs Visit/Account #[id number] (April 17, 2016 5:21pm - April 17, 2016 6: 23pm) Sign First Result Last Result Code(s) Temperature in Fahrenheit Temperature (Fahrenheit): 98.7 [degF] On April 17, 2016 5:24pm 8310-5 Body Temperature Weight in Kilograms Weight (Kilograms): 58.2 kg On April 17, 2016 5:24pm 3141-9 Weight Measured 43352-5 Body weight measured in kilograms Functional Status Functional and Cognitive Status No Functional Status Data Medications Inpatient/Ordered Medications - Medications administered during hospital visit Visit/Account #[id number] (April 17, 2016 5:21pm - April 17, 2016 6: 23pm) Medication Route Sig/Schedule Precondition/Indication Comments/Instructions Codes IV Medication Carriers: NORMAL SALINE(SODIUM CHLORIDE) 1000 ML INJECTION Dose: 1000 ML INTRAVEN .Q1H (Rate: 1000 MLS/HR Duration: 1 HR) Carriers: Sodium Chloride 0.154 MEQ/ML Injectable Solution (RxNorm): 144038 NORMAL SALINE (SODIUM CHLORIDE) NDC: 02056518804 SUBLIMAZE INJ(FentaNYL CITRATE) 100 MCG/2 ML INJECTION Dose: 1 ML INTRAVEN NOW Label Comments: GIVE BY SLOW PUSH OVER 2-5 MIN MAY INCREASE FALL RISK SUBLIMAZE INJ (FentaNYL CITRATE) NDC: 83066756034 ZOFRAN INJ(ONDANSETRON HCL) 4 MG/2 ML INJECTION Dose: 2 ML INTRAVEN NOW Label Comments: SLOW IV PUSH MAY INCREASE FALL RISK 2 ML Ondansetron 2 MG/ML Injection (RxNorm): 9816335 ZOFRAN INJ (ONDANSETRON HCL) NDC: 49632342309 BENADRYL INJ(DiphenhydrAMINE HCL) 50 MG/ML INJECTION Dose: 0.5 ML INTRAVEN NOW Label Comments: MAY INCREASE FALL RISK Diphenhydramine Hydrochloride 50 MG/ML Injectable Solution (RxNorm): 8127449 BENADRYL INJ (DiphenhydrAMINE HCL) NDC: 21292855178 Solu-MEDROL INJ(MethylPREDNISolone SOD SUCC) 125 MG/2 ML INJECTION Dose: 2 ML INTRAVEN NOW Methylprednisolone 125 MG Injection [Solu-Medrol] (RxNorm): 6385269 Solu-MEDROL INJ (MethylPREDNISolone SOD SUCC) NDC: 17133595547 History Of Encounters Encounters Visit/Account #[id number] (April 17, 2016 5:21pm - April 17, 2016 6: 23pm) Account Status Physican Of Record Reason For Visit Visit Diagnosis Start Date/Time Stop Date/Time ER ZAK L[facility] MD BACK PAIN M54.5: LOW BACK PAIN ICD10 Apr 17, 2016 5:21pm Apr 17, 2016 6:23pm History of Procedures Procedure List No procedures recorded. Discharge Instructions Discharge Instructions Visit/Account #[id number] (April 17, 2016 5:21pm - April 17, 2016 6: 23pm) DISCHARGE INSTRUCTIONS Physician Documentation Social History Social History No Social History Data. Immunizations Immunizations Patient Unit Number: [id number] Immunizations No immunizations recorded.
[2016-08-05 18:16] LABS: BASOPHILS % (AUTO) 0.5 % (0-2); EOSINOPHILS # (AUTO) 0.2 T/MM3 (0-0.5); EOSINOPHILS % (AUTO) 4.6 % (0-4); HGB - HEMOGLOBIN 12.6 GM/DL (12-16); LYMPHOCYTES # (AUTO) 1.3 T/MM3 (1-4.8); LYMPHOCYTES % (AUTO) 34.4 % (23-45); MEAN CORPUSCULAR HGB 31.6 UUG (26-34); MEAN CORPUSCULAR HGB CONC(MCHC 32.3 GM/DL (31-37); MEAN CORPUSCULAR VOLUME 97.7 UM3 (80-100); MEAN PLATELET VOLUME 8.8 UM3 (9.4-12.4); MONOCYTES # (AUTO) 0.4 T/MM3 (0-0.8); MONOCYTES % (AUTO) 11.7 % (0-9.0); NEUTROPHILS #(AUTO)-ABSOLUTE 1.8 T/MM3 (1.8-7.7); NEUTROPHILS % (AUTO) 48.8 % (33-66); RED BLOOD COUNT 3.99 M/MM3 (4.00-5.20); WBC - WHITE BLOOD COUNT 3.7 T/MM3 (4.5-11.0)
[2016-08-05 18:22] LABS: ANION GAP 9 MEQ/L (5-15); BUN/CREATININE RATIO 17 RATIO (6-26); CALCIUM 10.3 MG/DL (8.4-10.2); CHLORIDE 102 MEQ/L (98-107); CO2 - CARBON DIOXIDE 27 MEQ/L (22-30); CREATININE 0.7 MG/DL (0.7-1.2); GLOMERULAR FILTRATION RATE 79; GLUCOSE 132 MG/DL (65-110); POTASSIUM 4.2 MEQ/L (3.6-5); SODIUM 138 MEQ/L (134-144)
[2016-08-05] MEDS ORDERED: AMLO5TAB2 PO (18:34)
[2016-08-05] MEDS ORDERED: LISI-621 PO (18:34)
[2016-08-05] MEDS ORDERED: CYAN10009 PO (18:35)
--- OUTSIDE RECORDS SUMMARY | 2016-08-05 18:35 | XMS REPORT | Continuity of Care Document ---
Author Author [facility] Organization [facility] Address Unknown Phone Unavailable Care Team Providers Care Arc Trimmer Name Role Phone NOÉ YEE MD Primary Care Physician [phone] Insurance Providers Payer Name Policy Number Subscriber Name Relationship Medicare A And B [id number] Shira Adair 18 Self / Same As [...] worrisome symptoms. * Emergency Department phone number: [phone], x [phone]* MEDICAL RECORD If you need copies of your X-rays, call [phone]. If you need copies of [...] services. SERVICE BILLING LIBERTARIAN Emergency Room Services [facility] Physician Services [facility] X-rays [facility] Patients will receive bills for services from the appropriate provider. If you have any questions about your [facility] bill, our staff will be happy to assist you. Please call [phone], and ask for the billing department. THANK YOU for choosing [facility] as your emergency care provider! Functional Status [...] YHas specimen been collected/obtained? Y Urine Specific Muse November 18, 2014 1:45pm 1.015 1.005-1.030 Collected [...] Encounters Encounter Location Date/Time Departed Emergency Room [facility] 12/22/14 10:49am Registered Clinic [facility] 11/23/14 9:32am Recent Diagnosis
--- OUTSIDE RECORDS SUMMARY | 2016-08-05 18:35 | XMS REPORT | Continuity of Care Document ---
Author Author [facility] Organization [facility] Address Unknown Phone Unavailable Support Name Relationship Address Phone RAFIQ HERMAN MD Caregiver [address] [place], [place] [address] GAVI RAMIREZ MD Caregiver [address] [place], [place] [address] MELVA MCNEAL & MAMIE Next Of Kin [address] [place], [place] [address] Insurance Providers Payer Name Policy Number Subscriber Name Relationship Medicare A And B [id number] Shira Adair 18 Self / Same As [...] Instructions You are being discharged to the [facility] for further rehabilitation. You would [...] FOLLOW DR. HERMAN'S DISCHARGE INSTRUCTIONS, CONTINUE WITH [facility] PT/OT Plan of Care Discharge Date 11/18/14 [...] YHas specimen been collected/obtained? Y Urine Specific Pitcher November 18, 2014 1:45pm 1.015 1.005-1.030 Collected [...] procedures. Encounters Encounter Location Date/Time Admitted Inpatient [facility] 11/17/14 11:00pm Registered Clinic [facility] 11/17/14 8:30pm Registered Clinic [facility] 11/03/14 4:33pm Recent Diagnosis Hypertensive emergency Altered mental status
--- OUTSIDE RECORDS SUMMARY | 2016-08-05 18:35 | XMS REPORT | Continuity of Care Document ---
Author Author [facility] Address Unknown Phone Unavailable Allergies Active Description Code Type Severity Reaction Onset Reported/Identified Relationship to Patient Clinical Status Yes Iodine and Iodide Containing Produc [id number] Drug Allergy Severe N/A 11/17/2014 Medications Problems [...] Ot E849.6 04/19/2015 Ot E888.9 04/19/2015 GAVI RAMIREZ MD R Ot 780.79 04/19/2015 GAVI RAMIREZ MD Ot 784.0 04/19/2015 SARITA MEYERS, TRUE Marquez Ot V12.54 04/19/2015 NOÉ CLEMENS MD Ot 733.00 04/19/2015 NOÉ CELMENS MD Ot V49.81 05/05/2015 Ot 724.2 05/05/2015 [...] JAYLEEN MEYERS, NOÉ Benavides Ot E83.52 05/24/2015 JAYLEEN MEYERS, NOÉ Benavides Ot I10 06/06/2015 JAYLEEN [...] DO 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 Type Provider Facility Loc./Unit Complaint [id number] 09/10/2015 10:49:00 2015 15:29:00 DIS Emergency RUBIO AMARAL, SALENA [facility] ED [id number] 05/12/2015 23:35:00 2015 08:19:00 DIS [id number] 05/03/2015 13:04:00 2015 16:37:00 DIS Inpatient ROSITA MEYERS, [facility] MED/SURG [id number] 01/20/2015 08:43:00 2014 23:59:59 CLS Outpatient JAYLEEN MEYERS, [facility] RAD [id number] 12/22/2014 10:49:00 2014 17:01:00 DIS Emergency BELGICA MEYERS, [facility] ED [id number] 11/25/2014 18:15:00 2014 23:59:59 CLS Preadmit SARITA MEYERS, [facility] RAD [id number] 11/23/2014 09:32:00 2014 23:59:59 CLS Outpatient SARITA MEYERS, [facility] RT [id number] 11/17/2014 23:00:00 2014 17:25:00 DIS Inpatient VIRGIL MEYERS, [facility] ICU [id number] 11/17/2014 20:30:00 2014 23:59:59 CLS Outpatient JAMES MEYERS, [facility] EMS [id number] 11/03/2014 16:33:00 2014 23:59:59 CLS Outpatient [facility] EMS [id number] 09/10/2015 10:20:00 ACT Outpatient RUBIO AMARAL [facility] EMS [id number] 05/03/2015 11:52:00 ACT Outpatient JAYLEEN MEYERS, [facility] LAB [id number] 04/19/2015 09:50:00 ACT Outpatient JAYLEEN MEYERS, [facility] RAD
[2016-08-05] MEDS ORDERED: LORA0.5T2 PO (18:36)
[2016-08-05] MEDS ORDERED: ACET325T51 PO (18:37)
[2016-08-05 18:53] LABS: THYROID STIM HORMONE-TSH 1.72 MIU/L (0.47-4.68)
--- NOTE | 2016-08-05 19:15 | NUR ---
BR PT AMBULATES TO BR INDEPENDENTLY USING A WALKER WITH A STEADY GAIT. URINE SAMPLE IS OBTAINED FOR LAB.
[2016-08-05 19:19] LABS: BLOOD, URINE TRACE-INTACT (NEGATIVE); COLOR,URINE YELLOW (YELLOW); LEUKOCYTE ESTERASE ,URINE NEGATIVE (NEGATIVE); NITRITE,URINE NEGATIVE (NEGATIVE); UROBILINOGEN,URINE 0.2 EU/DL (NORMAL)
--- NOTE | 2016-08-05 19:31 | NUR ---
COMMUNICATION [place] STAFF REPORT THAT PT HAS NO DPOA AND REPORT THAT PRIOR TO HER STAY AT [facility] THE PT HAD BEEN LIVING IN A MOTEL FOR 2 YEARS AND THE STAFF AT THE [facility] WERE TAKING CARE OF HER AND EVENTUALLY BECAME CONCERNED FOR HER WELFARE AND CONTACTED LAW ENFORCEMENT. Addendum: 08/05/16 at 1938 by [email or web address] FOLLOWING THIS THE PT HAS BEEN HOSPITALIZED AND SEVERAL FACILITIES FOR [facility] AND ENDED UP AND [facility] WHICH IS WHERE SHE WAS UNTIL SHE ARRIVED AT [facility].
--- NOTE | 2016-08-05 21:00 | NUR ---
STATUS PT CONTINUES TO SLEEP, NO S/S OF ACUTE DISTRESS.
--- NOTE | 2016-08-05 22:15 | NUR ---
INTAKE PT IS GIVEN SANDWICH AND APPLESAUCE AT THIS TIME.
--- NOTE | 2016-08-05 22:47 | NUR ---
GENERATIONS FINALLY CALLS BACK AND STATES THAT THE PT DOES NOT MEET INPATIENT CRITERIA.
--- NOTE | 2016-08-05 23:10 | NUR ---
PROVIDER KENNA FISCHER IT SUPPORT ENGINEER IN ROOM TO DISCUSS DISCHARGE AND RETURN TO [facility] AT THIS TIME.
--- NOTE | 2016-08-05 23:15 | NUR ---
COMMUNICATION MELVA AT [facility] IS NOTIFIED THAT THE PT IS READY TO BE DISCHARGED. SHE REPORTS HER ADMINISTRATION IS "DECIDING WHAT TO DO" AND THAT SHE WILL RETURN MY CALL SOON SHE KNOWS. Addendum: 08/06/16 at 0047 by [email or web address] REPORT IS GIVEN TO MELVA AT THIS TIME WELL.
--- NOTE | 2016-08-05 23:24 | NUR ---
BR PT AMBULATES TO BR AT THIS TIME USING WALKER WITH A STEADY GAIT.
--- NOTE | 2016-08-05 23:45 | NUR ---
LALO JOY AT [facility] REPORTS THAT WE ARE TO AWAIT A CALL FROM Jim DILLON WITH DR TREVIZO, SHE HAS BEEN TOLD NOT TO ARRANGE TRANSPORTATION UNTIL THIS COMMUNICATION IS MADE. EXPLAIN TO NURSE THAT PT IS DISCHARGED.
--- NOTE | 2016-08-05 23:52 | NUR ---
COMMUNICATION BENITA @ [facility] IS CONTACTED AT THIS TIME AND ASKED TO HAVE THEIR ONCALL ANALYTICS INTERN SPEAK TO ALANNAH FISCHER APRN. PHONE NUMBER IS GIVEN.
--- NOTE | 2016-08-06 00:05 | NUR ---
COMMUNICATION AFTER SPEAKING TO PHYSICIAN ADVISOR WITH [facility], TRANSPORTATION WILL BE ARRANGED TO PICK THE PT UP TO TAKE HER BACK.
[2016-08-06 01:05] VITALS: BP 138/65; PULSE 65; RESP 16; O2SAT 94
--- NOTE | 2016-08-06 01:05 | NUR ---
ERMA TAVERAS BOX TOE MAKER, WICK TENDER AT [facility] ARRIVES TO STUDENT OUTREACH COORDINATOR PT. AFTER 5-10 MINUTES OF CONVERSATION PT FINALLY AGREES TO GO. PT LEAVES VIA WALKER TO TRANSPORTATION VAN WHERE SHE WILL BE ESCORTED HOME. IT IS EXPLAINED TO THE PT THAT SHE HAS PRN PAIN MEDICATION AND ANXIETY MEDICATION.
== END 2016-08-06 01:05 ==
LOC: ED 17:48
DX: Z04.6 Encounter for general psychiatric examination, requested by authority (principal); R45.1 Restlessness and agitation; Z86.59 Personal history of other mental and behavioral disorders
CPT/HCPCS: 36415; 80048; 81003; 84443; 85025

== ENCOUNTER 2017-02-28 15:15 | Inpatient (IN) ==
[2017-02-28] MEDS ORDERED: CEFTRIAXONE 1 G INJECTION IM SCH (16:00)
--- NOTE | 2017-02-28 16:07 | Emergency Department Report ---
General Adult HPI - General Chief complaint: Psychiatric Symptoms Stated complaint: not feeling well Time Seen by Provider: 02/28/17 15:30 Source: other (NH report) - History of Present Illness HPI narrative: Pt has been uncooperative and combative at the residential. Pt has a confirmed UTI and has been placed on Bactrim. [place] staff attempted to call PCP due to pts behavior. Apparently pt has been combative for the last few months and today was refusing to take her medications when PCP did not respond pt was sent to the ER Onset (ago): month(s) - Related Data Home Medications Medication Instructions Recorded Confirmed Amlodipine Besylate 5 mg PO DAILY #0 08/05/16 02/28/17 Cyanocobalamin (Vitamin B-12) 1,000 mcg PO DAILY #0 08/05/16 02/28/17 [Vitamin B-12] Lisinopril 20 mg PO HS #0 08/05/16 02/28/17 Cholecalciferol (Vitamin D3) 2,000 unit PO DAILY 10/05/16 02/28/17 [Vitamin D3] Dextran 70/Hypromellose 1 drop EACH EYE TID PRN 10/05/16 02/28/17 [Artificial Tears Eye Drops] Duloxetine [Cymbalta] 20 mg PO DAILY 10/05/16 02/28/17 Aspirin 81 mg PO DAILY 02/28/17 02/28/17 Aspirin 81 mg PO TID PRN 02/28/17 02/28/17 Mag Hydrox/Aluminum Hyd/Simeth 30 ml PO Q2H PRN 02/28/17 02/28/17 [Maalox Advanced Suspension] Sulfamethox/Tmp [Bactrim Ds] 1 tab PO BID 02/28/17 02/28/17 Allergies Allergy/AdvReac Type Severity Reaction Status Date / Time iodine Allergy Unknown Verified 02/28/17 15:37 shellfish derived Allergy Unknown Verified 02/28/17 15:37 Pork/Porcine Containing Allergy Verified 03/01/17 10:17 Products Review of Systems Limitations: ROS unobtainable due to patient's medical condition PFSH Patient Stated Medical History Alzheimer's Disease Yes Dementia Yes Hearing Loss Yes Coronary Artery Disease Yes Hypertension Yes Hx Incontinence Yes Anemia Yes Osteoarthritis Yes Clinic Medical History Acute psychosis (Acute Medical) UTI (urinary tract infection), bacterial (Acute Medical) Paranoid delusion (Acute Medical) Dementia with behavioral disturbance (Acute Medical) Person with feared complaint in whom no diagnosis is made (Inactive Medical) - Social History Smoking status: Unknown if ever smoked Physical Exam - Limitations Limitations: altered mental status - General General appearance: alert - Normal Exams: Eyes:: Pupils are PERRLA w/ EOMI Neck:: Full range of motion, without adenopathy Chest/Respirations:: Clear all vargas, with good airflow, and symmetry bilaterally Cardiovascular:: Regular rate and rhythm, without murmur or gallop, Pulses 2+ all extremities, capillary refill Abdomen:: Bowel sounds positive, soft, non-tender, non-distended Musculoskeletal:: No tenderness, or deformity noted, good range of motion, all extremities Integumentary:: No rashes - Psychiatric Psychiatric exam: Present: agitated - Expanded Psychiatric Exam Expanded psych exam: Present: delusional, restlessness, uncooperative Course Vital Signs Temperature 97.9 F 02/28/17 15:15 Respiratory Rate 20 02/28/17 15:15 Blood Pressure 221/134 H 02/28/17 15:15 Temperature 96.2 F L 03/02/17 15:56 Pulse Rate 69 03/02/17 15:56 Respiratory Rate 12 03/02/17 15:56 Blood Pressure 142/67 H 03/02/17 15:56 Pulse Oximetry 96 03/02/17 15:56 Medical Decision Making - Differential Diagnosis UTI, dementia, Alzheimers - Lab Data Result diagrams: 02/28/17 17:21 02/28/17 17:20 Lab Results 02/28/17 02/28/17 02/28/17 Range/Units 17:18 17:20 17:21 WBC 6.7 (4.5-11.0) T/MM3 RBC 4.05 (4.00-5.20) M/MM3 Hgb 12.9 (12-16) GM/DL Hct 39.2 (36-46) % MCV 96.8 (80-100) UM3 MCH 31.9 (26-34) UUG MCHC 32.9 (31-37) GM/DL RDW Std Deviation 45.6 (36.9-50.2) FL Plt Count 183 (130-400) T/MM3 MPV 9.2 L (9.4-12.4) UM3 Immature Gran % (Auto) 0.1 (0.0-0.5) % Neut % (Auto) 75.4 H (33-66) % Lymph % (Auto) 13.7 L (23-45) % [place] % (Auto) 10.3 H (0-9.0) % Eos % (Auto) 0.4 (0-4) % Baso % (Auto) 0.1 (0-2) % Neut # (Auto) 5.1 (1.8-7.7) T/MM3 Lymph # (Auto) 0.9 L (1-4.8) T/MM3 [place] # (Auto) 0.7 (0-0.8) T/MM3 Eos # (Auto) 0.0 (0-0.5) T/MM3 Baso # (Auto) 0.0 (0-0.2) T/MM3 Abs Immat Gran (auto) 0.01 (0.00-0.03) T/MM3 Turbidity < 20 (0-20) Sodium 141 (134-144) MEQ/L Potassium 4.4 (3.6-5) MEQ/L Chloride 108 H (98-107) MEQ/L Carbon Dioxide 24 (22-30) MEQ/L Anion Gap 9 (5-15) MEQ/L BUN 15.0 (7-17) MG/DL Creatinine 1.0 (0.7-1.2) MG/DL GFR Calculation 53 BUN/Creatinine Ratio 15 (6-26) RATIO Glucose 125 H (65-110) MG/DL Calculated Osmolality 273 (261-280) MOSM/KG Calcium 10.6 H (8.4-10.2) MG/DL Total Bilirubin 0.80 (0.20-1.30) MG/DL Icterus Index < 2 (0-7) AST 22 (14-36) U/L ALT 24 (9-52) U/L Alkaline Phosphatase 79 (38-126) U/L Total Protein 7.0 (6.3-8.2) G/DL Albumin 3.8 (3.5-5.0) G/DL Globulin 3.2 (2.4-3.6) G/DL Albumin/Globulin Ratio 1.2 (1.1-2.2) RATIO TSH 1.81 (0.47-4.68) MIU/L Specimen Hemolysis < 15 (0-25) Disposition Clinical Impression: Encephalopathy due to infection UTI (urinary tract infection) Qualifiers: Urinary tract infection type: acute cystitis Hematuria presence: without hematuria Qualified Code(s): N30.00 - Acute cystitis without hematuria Disposition: Acute Care Hosp, Other Condition: Improved - Seen By: midlevel
[2017-02-28] MEDS ORDERED: HALOPERIDOL 5 MG/ML INJECTION IM ONE (16:19)
--- OUTSIDE RECORDS SUMMARY | 2017-02-28 16:46 | External Medical Summary | Continuity of Care Document ---
:1930 Author Organization [facility] Allergies Active Description Code Type Severity Reaction Onset Reported/ Identified Relationship Clinical to Patient Status Yes Iodine and F0010 Drug Severe N/A 11/17/2014 Iodide 73137 Aller Containing gy Produc Medications Problems Date Dx Attending Type Code Diagnosis Diagnosed By Coded 11/09/2014 Ot 724.2 11/09/2014 Ot 724.5 11/09/2014 Ot 729.5 11/09/2014 Ot 780.09 11/09/2014 Ot 784.0 11/09/2014 Ot 786.50 11/09/2014 Ot E849.6 11/09/2014 Ot E888.9 11/18/2014 VIRGIL MEYERS, Ot 401.9 RAFIQ H 11/18/2014 VIRGIL MEYERS, Ot 780.4 RAFIQ H 11/18/2014 VIRGIL MEYERS, Ot V12.54 RAFIQ H 11/18/2014 VIRGIL MEYERS, Ot V15.81 RAFIQ H 11/23/2014 Ot 724.2 11/23/2014 Ot 724.5 11/23/2014 Ot 729.5 11/23/2014 Ot 780.09 11/23/2014 Ot 784.0 11/23/2014 Ot 786.50 11/23/2014 Ot E849.6 11/23/2014 Ot E888.9 11/24/2014 Ot 724.2 11/24/2014 Ot 724.5 11/24/2014 Ot 729.5 11/24/2014 Ot 780.09 11/24/2014 Ot 784.0 11/24/2014 Ot 786.50 11/24/2014 Ot E849.6 11/24/2014 Ot E888.9 11/24/2014 JAMES MEYERS, Ot 780.79 GATICA R 11/24/2014 JAMES MEYERS, Ot 784.0 GATICA R 11/24/2014 Ot 724.2 11/24/2014 Ot 724.5 11/24/2014 Ot 729.5 11/24/2014 Ot 780.09 11/24/2014 Ot 784.0 11/24/2014 Ot 786.50 11/24/2014 Ot E849.6 11/24/2014 Ot E888.9 11/24/2014 JAMES MEYERS, Ot 780.79 GATICA R 11/24/2014 JAMES MEYERS, Ot 784.0 GATICA R 11/25/2014 Ot 724.2 11/25/2014 Ot 724.5 11/25/2014 Ot 729.5 11/25/2014 Ot 780.09 11/25/2014 Ot 784.0 11/25/2014 Ot 786.50 11/25/2014 Ot E849.6 11/25/2014 Ot E888.9 12/10/2014 JAMES MEYERS, Ot 780.79 GATICA R 12/10/2014 JAMES MEYERS, Ot 784.0 GATICA R 12/22/2014 BELGICA MEYERS, FRANSICO Ot 722.52 12/22/2014 BELGICA MEYERS, FRANSICO Ot 724.2 12/22/2014 BELGICA MEYERS, FRANSICO Ot 729.5 12/22/2014 BELGICA MEYERS, FRANSICO Ot 733.13 01/07/2015 SARITA MEYERS, Ot V12.54 TRUE R 04/19/2015 Ot 724.2 04/19/2015 Ot 724.5 04/19/2015 Ot 729.5 04/19/2015 Ot 780.09 04/19/2015 Ot 784.0 04/19/2015 Ot 786.50 04/19/2015 Ot E849.6 04/19/2015 Ot E888.9 04/19/2015 JAMES MEYERS, Ot 780.79 GATICA R 04/19/2015 JAMES MEYERS, Ot 784.0 GATICA R 04/19/2015 SARITA MEYERS, Ot V12.54 TRUE R 04/19/2015 JAYLEEN MEYERS, Ot 733.00 NOÉ Benavides 04/19/2015 JAYLEEN MEYERS, Ot V49.81 NOÉ Benavides 05/05/2015 Ot 724.2 05/05/2015 Ot 724.5 05/05/2015 Ot 729.5 05/05/2015 Ot 780.09 05/05/2015 Ot 784.0 05/05/2015 Ot 786.50 05/05/2015 Ot E849.6 05/05/2015 Ot E888.9 05/05/2015 JAMES MEYERS, Ot 780.79 GATICA R 05/05/2015 JAMES MEYERS, Ot 784.0 GATICA R 05/05/2015 SARITA MEYERS, Ot V12.54 TRUE R 05/05/2015 JAYLEEN MEYERS, Ot 733.00 NOÉ D 05/05/2015 JAYLEEN MEYERS, Ot V49.81 NOÉ D 05/05/2015 JAYLEEN MEYERS, Ot E83.52 NOÉ D 05/05/2015 JAYLEEN MEYERS, Ot I65.23 NOÉ D 05/05/2015 JAYLEEN MEYERS, Ot M81.0 NOÉ D 05/05/2015 JAYLEEN MEYERS, Ot Z86.73 NOÉ D 05/05/2015 Ot 724.2 05/05/2015 Ot 724.5 05/05/2015 Ot 729.5 05/05/2015 Ot 780.09 05/05/2015 Ot 784.0 05/05/2015 Ot 786.50 05/05/2015 Ot E849.6 05/05/2015 Ot E888.9 05/05/2015 JAMES MEYERS, Ot 780.79 GATICA R 05/05/2015 JAMES MEYERS, Ot 784.0 GATICA R 05/05/2015 SARITA MEYERS, Ot V12.54 TRUE R 05/05/2015 JAYLEEN MEYERS, Ot 733.00 NOÉ D 05/05/2015 JAYLEEN MEYERS, Ot V49.81 NOÉ D 05/05/2015 JAYLEEN MEYERS, Ot E83.52 NOÉ D 05/05/2015 JAYLEEN MEYERS, Ot I65.23 NOÉ D 05/05/2015 JAYLEEN MEYERS, Ot M81.0 NOÉ D 05/05/2015 JAYLEEN MEYERS, Ot Z86.73 NOÉ D 05/05/2015 ROSITA MEYERS, Ot E78.5 DAMIAN P 05/05/2015 ROSITA MEYERS, Ot I10 DAMIAN P 05/05/2015 ROSITA MEYERS, Ot I25.10 DAMIAN P 05/05/2015 ROSITA MEYERS, Ot M79.1 DAMIAN P 05/05/2015 ROSITA MEYERS, Ot R07.9 DAMIAN P 05/05/2015 ROSITA MEYERS, Ot R10.9 DAMIAN P 05/12/2015 JAYLEEN MEYERS, Ot E83.52 NOÉ D 05/12/2015 JAYLEEN MEYERS, Ot I65.23 NOÉ D 05/12/2015 JAYLEEN MEYERS, Ot M81.0 NOÉ D 05/12/2015 JAYLEEN MEYERS, Ot Z86.73 NOÉ D 05/12/2015 Ot 724.2 05/12/2015 Ot 724.5 05/12/2015 Ot 729.5 05/12/2015 Ot 780.09 05/12/2015 Ot 784.0 05/12/2015 Ot 786.50 05/12/2015 Ot E849.6 05/12/2015 Ot E888.9 05/12/2015 JAMES MEYERS, Ot 780.79 GATICA R 05/12/2015 JAMES MEYERS, Ot 784.0 GATICA R 05/12/2015 SARITA MEYERS, Ot V12.54 TRUE R 05/12/2015 JAYLEEN MEYERS, Ot 733.00 NOÉ D 05/12/2015 JAYLEEN MEYERS, Ot V49.81 NOÉ D 05/12/2015 JAYLEEN MEYERS, Ot E83.52 NOÉ D 05/12/2015 JAYLEEN MEYERS, Ot I65.23 NOÉ D 05/12/2015 JAYLEEN MEYERS, Ot M81.0 NOÉ D 05/12/2015 JAYLEEN MEYERS, Ot Z86.73 NOÉ D 05/12/2015 JAYLEEN MEYERS, Ot E67.3 NOÉ D 05/12/2015 JAYLEEN MEYERS, Ot E83.52 NOÉ D 05/12/2015 JAYLEEN MEYERS, Ot I10 NOÉ D 05/13/2015 GARCIA MEYERS, Ot I10 AIDAN P 05/13/2015 GARCIA MEYERS, Ot I25.10 AIDAN P 05/13/2015 GARCIA MEYERS, Ot S91.311A AIDAN P 05/13/2015 GARCIA MEYERS, Ot W26.0XXA AIDAN P 05/13/2015 GARCIA MEYERS, Ot Y92.009 AIDAN P 05/13/2015 GARCIA MEYERS, Ot Z86.73 AIDAN P 05/23/2015 Ot 724.2 05/23/2015 Ot 724.5 05/23/2015 Ot 729.5 05/23/2015 Ot 780.09 05/23/2015 Ot 784.0 05/23/2015 Ot 786.50 05/23/2015 Ot E849.6 05/23/2015 Ot E888.9 05/23/2015 JAMES MEYERS, Ot 780.79 GATICA R 05/23/2015 JAMES MEYERS, Ot 784.0 GATICA R 05/23/2015 SARITA MEYERS, Ot V12.54 TRUE R 05/23/2015 JAYLEEN MEYERS, Ot 733.00 NOÉ D 05/23/2015 JAYLEEN MEYERS, Ot V49.81 NOÉ D 05/23/2015 JAYLEEN MEYERS, Ot E83.52 NOÉ D 05/23/2015 JAYLEEN MEYERS, Ot I65.23 NOÉ D 05/23/2015 JAYLEEN MEYERS, Ot M81.0 NOÉ D 05/23/2015 JAYLEEN MEYERS, Ot Z86.73 NOÉ D 05/23/2015 JAYLEEN MEYERS, Ot E67.3 NOÉ D 05/23/2015 JAYLEEN MEYERS, Ot E83.52 NOÉ D 05/23/2015 JAYLEEN MEYERS, Ot I10 NOÉ D 05/23/2015 JAYLEEN MEYERS, Ot E83.52 NOÉ D 05/23/2015 JAYLEEN MEYERS, Ot I65.23 NOÉ D 05/23/2015 JAYLEEN MEYERS, Ot M81.0 NOÉ D 05/23/2015 JAYLEEN MEYERS, Ot Z86.73 NOÉ D 05/23/2015 JAYLEEN MEYERS, Ot E67.3 NOÉ D 05/23/2015 JAYLEEN MEYERS, Ot E83.52 NOÉ D 05/23/2015 JAYLEEN MEYERS, Ot I10 NOÉ D 05/23/2015 SARITA MEYERS, Ot V12.54 TRUE R 05/24/2015 JAYLEEN MEYERS, Ot E67.3 NOÉ D 05/24/2015 JAYLEEN MEYERS, Ot E83.52 NOÉ D 05/24/2015 JAYLEEN MEYERS, Ot I10 NOÉ D 06/06/2015 JAYLEEN MEYERS, Ot E67.3 NOÉ D 06/06/2015 JAYLEEN MEYERS, Ot E83.52 NOÉ D 06/06/2015 JAYLEEN MEYERS, Ot I10 NOÉ D 06/15/2015 JAYLEEN MEYERS, Ot E83.52 NOÉ D 06/15/2015 JAYLEEN MEYERS, Ot I65.23 NOÉ D 06/15/2015 JAYLEEN MEYERS, Ot M81.0 NOÉ D 06/15/2015 JAYLEEN MEYERS, Ot Z86.73 NOÉ D 06/15/2015 SARITA MEYERS, Ot V12.54 TRUE R 09/10/2015 BERGERON DO, Ot I10 ESSENTIAL (PRIMARY) [place] M HYPERTENSION 09/10/2015 BERGERON DO, Ot I25.10 ATHSCL HEART DISEASE [place] M OF [place] CORONARY 09/10/2015 BERGERON DO, Ot R42 DIZZINESS AND [place] M GIDDINESS 09/10/2015 BERGERON DO, Ot 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), AND CEREB INFRC W 09/10/2015 BERGERON DO, Ot Z95.1 PRESENCE OF [place] Wade AORTOCORONARY BYPASS GRAFT 09/15/2015 BERGERON DO, Ot R03.0 ELEVATED [place] M BLOOD-PRESSURE READING, W/O KEY 09/15/2015 BERGERON DO, Ot R42 DIZZINESS AND [place] M GIDDINESS 09/15/2015 BERGERON DO, Ot I10 ESSENTIAL (PRIMARY) [place] M HYPERTENSION 09/15/2015 BERGERON DO, Ot I25.10 ATHSCL HEART DISEASE [place] M OF [place] CORONARY 09/15/2015 BERGERON DO, Ot R42 DIZZINESS AND [place] M GIDDINESS 09/15/2015 BERGERON DO, Ot 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 Type Provider Facility Loc./Unit Complaint No. Date/Time [id number] 09/10/2015 09/10/2015 CLS Outpatient [facility] [id number] 10:20:00 23:59:59 DO [facility] [id number] 09/10/2015 09/10/2015 DIS Emergency [facility] [id number] 10:49:00 15:29:00 DO [facility] [id number] 05/12/2015 05/13/2015 DIS Emergency GARCIA [facility] [id number] 23:35:00 08:19:00 , [facility] AIDAN P [id number] 05/03/2015 05/05/2015 DIS Inpatient BLOJANE [facility] [id number] 13:04:00 16:37:00 , [facility] [id number] 05/03/2015 05/03/2015 CLS Outpatient FARHANRENITA [facility] [id number] 11:52:00 23:59:59 , [facility] [id number] 04/19/2015 04/19/2015 CLS Outpatient JAYLEEN [facility] [id number] 09:50:00 23:59:59 , [facility] [id number] 01/20/2015 01/20/2015 CLS Outpatient JAYLEEN [facility] [id number] 08:43:00 23:59:59 , [facility] [id number] 12/22/2014 12/22/2014 DIS Emergency BELGICA MEYERS, [facility] [id number] 10:49:00 17:01:00 [facility] [id number] 11/25/2014 11/25/2014 CLS Preadmit SARITA [facility] [id number] 18:15:00 23:59:59 , [facility] [id number] 11/23/2014 11/23/2014 CLS Outpatient EVERTMANSIJf [place] RT [id number] 09:32:00 23:59:59 , [facility] [id number] 11/17/2014 11/18/2014 DIS Inpatient VIRGIL MEYERS, [facility] [id number] 23:00:00 17:25:00 [facility] [id number] 11/17/2014 11/17/2014 CLS Outpatient JAMES [facility] [id number] 20:30:00 23:59:59 , [facility] [id number] 11/03/2014 11/03/2014 CLS Outpatient [facility] [id number] 16:33:00 23:59:59 [facility]
[2017-02-28] MEDS ORDERED: FOSFOMYCIN 3 GRAM PACKET PO ONE ×2 (17:42→18:26)
[2017-02-28] MEDS ORDERED: ONDANSETRON 4 MG/2 ML INJECTION IVP PRN (20:16)
[2017-02-28] MEDS ORDERED: IBUPROFEN 600 MG TABLET PO PRN (20:16)
[2017-02-28] MEDS ORDERED: ACETAMINOPHEN 325 MG TABLET PO PRN (20:16)
[2017-02-28] MEDS ORDERED: HALOPERIDOL 5 MG/ML INJECTION IM PRN (20:16)
[2017-02-28 20:24] VITALS: BMI 20.2
[2017-02-28] MEDS: CEFTRIAXONE 1 G INJECTION IM SCH (20:27)
[2017-02-28] MEDS ORDERED: FALL RISK - PHARMACY CONSULT XX ONE (20:42)
--- NOTE | 2017-02-28 21:37 | History & Physical Report ---
History of Present Illness Date: 02/28/17 Chief complaint: altered mental status HPI: This an 86-year-old intermediate patient who has been noncompliant to her medications for many months now, reported secondhand as long as July of this year. She has had several days of increasing agitation combativeness with the nursing staff at the intermediate. She has a known urinary tract infection which was been confirmed by urinalysis on her prior outpatient visit to the emergency room here. She is altered confrontational and combative to staff here. She has made several litigious threats staff attempted to engage in treatment with her. She has also made several statements of several different non-coherent paranoid delusional ideas. She reportedly has no supporting family the contactable. The only known living relative is reportedly homeless. Review of Systems ROS unobtainable: due to mental status PFSH Patient Stated Medical History Alzheimer's Disease Yes Dementia Yes Hearing Loss Yes Coronary Artery Disease Yes Hypertension Yes Hx Incontinence Yes Anemia Yes Osteoarthritis Yes Clinic Medical History Acute psychosis (Acute Medical) Person with feared complaint in whom no diagnosis is made (Inactive Medical) Family History: This cannot be appreciated patient's medical records in patient is unwilling to engage in conversation - Social History Smoking status: Unknown if ever smoked Housing: intermediate Medications Home Medications Medication Instructions Recorded Confirmed Type Amlodipine Besylate 5 mg PO DAILY #0 08/05/16 02/28/17 History Cyanocobalamin (Vitamin B-12) 1,000 mcg PO DAILY #0 08/05/16 02/28/17 History [Vitamin B-12] Lisinopril 20 mg PO HS #0 08/05/16 02/28/17 History Cholecalciferol (Vitamin D3) 2,000 unit PO DAILY 10/05/16 02/28/17 History [Vitamin D3] Dextran 70/Hypromellose 1 drop EACH EYE TID PRN 10/05/16 02/28/17 History [Artificial Tears Eye Drops] Duloxetine [Cymbalta] 20 mg PO DAILY 10/05/16 02/28/17 History Aspirin 81 mg PO DAILY 02/28/17 02/28/17 History Aspirin 81 mg PO TID PRN 02/28/17 02/28/17 History Mag Hydrox/Aluminum Hyd/Simeth 30 ml PO Q2H PRN 02/28/17 02/28/17 History [Maalox Advanced Suspension] Sulfamethox/Tmp [Bactrim Ds] 1 tab PO BID 02/28/17 02/28/17 History Allergies Allergy/AdvReac Type Severity Reaction Status Date / Time iodine Allergy Unknown Verified 02/28/17 15:37 shellfish derived Allergy Unknown Verified 02/28/17 15:37 Exam Vital Signs: Temperature 98.7 F 02/28/17 20:16 Pulse Rate 75 02/28/17 20:16 Respiratory Rate 79 H 02/28/17 20:16 Blood Pressure 156/85 H 02/28/17 20:16 Pulse Oximetry 96 02/28/17 20:16 Height/Weight/BMI: Height 5 ft 8 in Weight 60.6 kg Body Mass Index 20.2 - Constitutional Present: thin, agitated - Routine HEENT Exam Head: Present: normocephalic, atraumatic Eye: Present: EOMI, PERRL - Routine Respiratory Exam Absent: accessory muscle use, respiratory distress - Routine Skin Exam Present: intact - Routine Neurological Exam Present: alert, altered mental status. Absent: oriented X3 - Routine Psychiatric Exam Present: agitated, paranoid Results - Labs CBC & Chem 7: 02/28/17 17:21 02/28/17 17:20 Assessment and Plan (1) UTI (urinary tract infection), bacterial Current visit: Yes Status: Acute (2) Dementia with behavioral disturbance Current visit: Yes Status: Acute (3) Acute psychosis Current visit: Yes Status: Acute (4) Paranoid delusion Current visit: Yes Status: Acute Assessment and Plan: Patient had already been given a dose of Haldol and Rocephin. I attempted to offer the patient the opportunity to take a single dose of fosfomycin as therapeutic treatment and return back to her intermediate. (Although the intermediate does not want her back until she is less combative). Patient is not in her right mind and unwilling to do this and so will be kept here on IV or IM injections of Rocephin for the seven-day course or until she develops enough wherewithal to take the oral fosfomycin. Haldol PRN has been scribed for for the protection of medical staff required to manage her. Disposition inpatient status unless patient is willing to take fosfomycin DVT Prophylaxis: other (patient is too agitated for anticoagulation and likely fall risk on SCDs) Hospital Course Summary Disclaimer: The visit summary below is not to be considered part of the above Progress Note.
[2017-02-28] MEDS: SALINE FLUSH 10ml SYRINGE IVF PRN (22:00)
[2017-03-01] MEDS: CEFTRIAXONE 1 G INJECTION IM SCH ×3 (05:14→18:29)
[2017-03-01] MEDS: ASPIRIN *EC* 325 MG TABLET PO PRN (06:09)
[2017-03-01] MEDS ORDERED: FOSFOMYCIN 3 GRAM PACKET PO ONE (13:00)
[2017-03-01] MEDS: SALINE FLUSH 10ml SYRINGE IVF PRN (16:53)
--- NOTE | 2017-03-01 21:04 | Progress Note ---
- Date 03/01/17 Subjective: Patient initially minimally conversant when seen in the morning. By the afternoon however she had taken the fosfomycin from the nurses and nurses had noticed a significant improvement in her engagement with the staff Objective Vital signs: Temperature 97.4 F 03/01/17 15:27 Pulse Rate 74 03/01/17 16:07 Respiratory Rate 18 03/01/17 16:07 Blood Pressure 152/78 H 03/01/17 15:27 Pulse Oximetry 94 03/01/17 16:07 Height/Weight/BMI: Height 5 ft 8 in Weight 59.8 kg Body Mass Index 20.2 - Constitutional Present: no acute distress, well developed, thin, disheveled - Routine HEENT Exam Head: Present: normocephalic, atraumatic Eye: Present: EOMI, PERRL ENT: Present: mucous membranes moist, dentition normal - Routine Respiratory Exam Present: CTA bilaterally. Absent: accessory muscle use, wheezes - Routine Cardiovascular Exam Present: RRR. Absent: murmur - Routine Abdominal Exam Present: soft, normoactive bowel sounds, non distended. Absent: tenderness - Routine Extremities Exam Present: normal capillary refill - Routine Skin Exam Present: dry, warm - Routine Neurological Exam Present: alert, oriented X3, CN II-XII intact - Routine Lymphatic Exam Lymphatic: Absent: adenopathy - Routine Psychiatric Exam Absent: normal affect, good insight, good judgment Results - Labs CBC & Chem 7: 02/28/17 17:21 02/28/17 17:20 Assessment and Plan (1) UTI (urinary tract infection), bacterial Current visit: Yes Status: Acute (2) Dementia with behavioral disturbance Current visit: Yes Status: Acute (3) Acute psychosis Current visit: Yes Status: Acute (4) Paranoid delusion Current visit: Yes Status: Acute Assessment and Plan: I contacted [facility]. They requested that the patient be allowed 48 hours after treatment to clear mentally before attempting to assess indicating that they would be willing to come to the medical side and screen her Saturday morning. My appreciation to them for their time on this case. However on revisiting the patient this afternoon I found her significantly improved, no longer agitated or verbally combative. Based upon this turn of events I think that she may be eligible to return to her fpc at this time. Will watch her further overnight to see if there is any further complication but it appears that her [place] tract was causing true toxic encephalopathy. This is likely most due to the effect of the Rocephin as we have a previous culture that shows susceptibility however the fosfomycin on its own should be sufficient treatment and would be recommended in the future for when she is in a similar situation Possible discharge in the morning dependent upon her continued clearing of encephalopathy DVT Prophylaxis: other Hospital Course Summary Disclaimer: The visit summary below is not to be considered part of the above Progress Note. Hospital Course: 02/28/2017 Patient had already been given a dose of Haldol and Rocephin. I attempted to offer the patient the opportunity to take a single dose of fosfomycin as therapeutic treatment and return back to her fpc. (Although the fpc does not want her back until she is less combative). Patient is not in her right mind and unwilling to do this and so will be kept here on IV or IM injections of Rocephin for the seven-day course or until she develops enough wherewithal to take the oral fosfomycin. Haldol PRN has been scribed for for the protection of medical staff required to manage her. Disposition inpatient status unless patient is unwilling to take fosfomycin
[2017-03-02] MEDS: ASPIRIN *EC* 325 MG TABLET PO PRN (09:28)
--- NOTE | 2017-03-02 13:13 | Progress Note ---
- Date 03/02/17 Subjective: This an 86-year-old halfway patient who has been noncompliant to her medications for many months now, reported secondhand as long as July of this year. She has had several days of increasing agitation combativeness with the nursing staff at the halfway. She has a known urinary tract infection which was been confirmed by urinalysis on her prior outpatient visit to the emergency room here. She is altered confrontational and combative to staff here. She has made several litigious threats staff attempted to engage in treatment with her. She has also made several statements of several different non-coherent paranoid delusional ideas. She reportedly has no supporting family. The only known living relative is reportedly homeless. Today, she is up in chair. She does not know where she is at this time. She cannot answer where she lives either. Her lobsterman memory is pretty good as she can tell me lots of places she has lived. She denies SOA, CP, Palp, abd pain , N/V. She denies dysuria. She reports eating well. Objective Vital signs: Temperature 96.9 F 03/02/17 09:22 Pulse Rate 69 03/02/17 09:22 Respiratory Rate 16 03/02/17 09:22 Blood Pressure 167/85 H 03/02/17 09:22 Pulse Oximetry 95 03/02/17 09:22 Height/Weight/BMI: Height 1.73 m Weight 58.7 kg Body Mass Index 20.2 Comments: Gen: alert. Oriented to person and year. Not to place. Unable to tell me where she resides. Skin: warm and dry HEENT: NC/AT PERRL, EOMI, Sclera, lids and conjunctiva wnl. MMM. OP clear. Neck: No JVD, Carotids 2+ without bruits Lungs: clear. No rales, rhonchi or wheezes CV: regular. soft murmur, rub or gallop Abd: soft. +BS. NT/ND MS: No edema. Good strength and ROM Neuro: No focal deficits Results - Labs CBC & Chem 7: 02/28/17 17:21 02/28/17 17:20 Assessment and Plan (1) Acute psychosis Current visit: Yes Status: Acute (2) UTI (urinary tract infection), bacterial Current visit: Yes Status: Acute (3) Paranoid delusion Current visit: Yes Status: Acute (4) Dementia with behavioral disturbance Current visit: Yes Status: Acute Assessment and Plan: 1. Encephalopathy with h/o anxiety disorder and dementia -Exacerbated by UTI-Treated -Improving behaviors -Has been at [facility] before. Will see if she continues to improve. If so she can go back to the [facility], if not then [facility] will see her on Saturday -Will resume her home Cymbalta 2. HTN -Will restart her home Norvasc 3. CAD -H/O CABG -Takes ASA 325mg BID prn for pain -Pt denies CP 4. Prophylaxis Lovenox SQ Hospital Course Summary Disclaimer: The visit summary below is not to be considered part of the above Progress Note. Hospital Course: 02/28/2017 Patient had already been given a dose of Haldol and Rocephin. I attempted to offer the patient the opportunity to take a single dose of fosfomycin as therapeutic treatment and return back to her halfway. (Although the halfway does not want her back until she is less combative). Patient is not in her right mind and unwilling to do this and so will be kept here on IV or IM injections of Rocephin for the seven-day course or until she develops enough wherewithal to take the oral fosfomycin. Haldol PRN has been scribed for for the protection of medical staff required to manage her. Disposition inpatient status unless patient is unwilling to take fosfomycin
[2017-03-02] MEDS: DULOXETINE 20 MG CAPSULE PO SCH (14:22)
[2017-03-02] MEDS: AMLODIPINE 5 MG TABLET PO SCH (14:22)
[2017-03-03] MEDS: ASPIRIN *EC* 325 MG TABLET PO PRN (08:52)
[2017-03-03] MEDS: AMLODIPINE 5 MG TABLET PO SCH ×2 (08:52→09:00)
[2017-03-03] MEDS: DULOXETINE 20 MG CAPSULE PO SCH ×2 (08:53→09:00)
--- NOTE | 2017-03-03 13:15 | Progress Note ---
- Date 03/03/17 Subjective: This an 86-year-old residential patient who has been noncompliant to her medications for many months now, reported secondhand as long as July of this year. She has had several days of increasing agitation combativeness with the nursing staff at the residential. She has a known urinary tract infection which was been confirmed by urinalysis on her prior outpatient visit to the emergency room here. She is altered confrontational and combative to staff here. She has made several litigious threats staff attempted to engage in treatment with her. She has also made several statements of several different non-coherent paranoid delusional ideas. She reportedly has no supporting family. The only known living relative is reportedly homeless. Today, she is up in chair. She does not know where she is at this time. She cannot answer where she lives either. 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 She denies SOA, CP, Palp, abd pain , N/V. She denies dysuria. She reports eating well. She does continue to refuse BP meds and her Cymbalta. She does not like the way the Cymbalta makes her feel so we will discontinue it. She states her BP are always up and down and she does not feel she needs to take anything for it. I will discontinue them as well. I asked her if she wanted to go home today and she stated she does not have anywhere to go. I told her we would send her back to the facility she came from and she is okay with that. Objective Vital signs: Temperature 97.4 F 03/03/17 07:40 Pulse Rate 70 03/03/17 07:40 Respiratory Rate 18 03/03/17 07:40 Blood Pressure 136/74 03/03/17 07:40 Pulse Oximetry 93 03/03/17 07:40 Height/Weight/BMI: Height 1.73 m Weight 57.6 kg Body Mass Index 20.2 Comments: Gen: alert. Oriented to person and year. Not to place. Unable to tell me where she resides. Skin: warm and dry HEENT: NC/AT PERRL, EOMI, Sclera, lids and conjunctiva wnl. MMM. OP clear. Neck: No JVD, Carotids 2+ without bruits Lungs: clear. No rales, rhonchi or wheezes CV: regular. soft murmur, rub or gallop Abd: soft. +BS. NT/ND MS: No edema. Good strength and ROM Neuro: No focal deficits Results - Labs CBC & Chem 7: 02/28/17 17:21 02/28/17 17:20 Microbiology Results: Laboratory Results - last 48 hr 03/02/17 12:08 Ur Collection Type Urine, clean catch Urine Color Yellow Urine Clarity Clear Urine pH 6.0 Ur Specific [place] <=1.005 L Urine Protein Negative Urine Glucose (UA) Negative Urine Ketones Negative Urine Occult Blood 1+ A Urine Nitrate Negative Urine Bilirubin Negative Urine Urobilinogen 0.2 Ur Leukocyte Esterase Negative Urine RBC 0-1 Urine WBC 3-5 Ur Squamous Epith Cells 5-10 Urine Bacteria Trace H Urine Mucus Present Ur Culture Indicated? Cult not indicated Assessment and Plan (1) Acute psychosis Current visit: Yes (2) UTI (urinary tract infection), bacterial Current visit: Yes Status: Acute (3) Paranoid delusion Current visit: Yes Status: Acute (4) Dementia with behavioral disturbance Current visit: Yes Status: Acute Assessment and Plan: 1. Encephalopathy with h/o anxiety disorder and dementia -Exacerbated by UTI-Treated -Improving behaviors -She can go back to the NH today 2. HTN -Pt refused treatment 3. CAD -H/O CABG -Takes ASA 325mg BID prn for pain -Pt denies CP 4. Prophylaxis Lovenox SQ Okay to send patient back to [place]. She has not been combative for 2 days now. Hospital Course Summary Disclaimer: The visit summary below is not to be considered part of the above Progress Note. Hospital Course: 02/28/2017 Patient had already been given a dose of Haldol and Rocephin. I attempted to offer the patient the opportunity to take a single dose of fosfomycin as therapeutic treatment and return back to her residential. (Although the residential does not want her back until she is less combative). Patient is not in her right mind and unwilling to do this and so will be kept here on IV or IM injections of Rocephin for the seven-day course or until she develops enough wherewithal to take the oral fosfomycin. Haldol PRN has been scribed for for the protection of medical staff required to manage her. Disposition inpatient status unless patient is unwilling to take fosfomycin
--- NOTE | 2017-03-03 13:20 | Discharge Summary ---
Discharge Information Date of admission: 02/28/17 19:48 Anticipated date of discharge: 03/03/17 Attending Physician: Jose Spivey MD Primary care physician: Bogdan Mcguire MD - Discharge Diagnosis (1) Acute psychosis Status: Resolved (2) UTI (urinary tract infection), bacterial Status: Resolved (3) Paranoid delusion Status: Chronic (4) Dementia with behavioral disturbance Status: Chronic - Laboratory Labs: Laboratory Results - last 72 hr 02/28/17 02/28/17 02/28/17 17:18 17:20 17:21 WBC 6.7 RBC 4.05 Hgb 12.9 Hct 39.2 MCV 96.8 MCH 31.9 MCHC 32.9 RDW Std Deviation 45.6 Plt Count 183 MPV 9.2 L Immature Gran % (Auto) 0.1 Neut % (Auto) 75.4 H Lymph % (Auto) 13.7 L [place] % (Auto) 10.3 H Eos % (Auto) 0.4 Baso % (Auto) 0.1 Neut # (Auto) 5.1 Lymph # (Auto) 0.9 L [place] # (Auto) 0.7 Eos # (Auto) 0.0 Baso # (Auto) 0.0 Abs Immat Gran (auto) 0.01 Turbidity < 20 Sodium 141 Potassium 4.4 Chloride 108 H Carbon Dioxide 24 Anion Gap 9 BUN 15.0 Creatinine 1.0 GFR Calculation 53 BUN/Creatinine Ratio 15 Glucose 125 H Calculated Osmolality 273 Calcium 10.6 H Total Bilirubin 0.80 Icterus Index < 2 AST 22 ALT 24 Alkaline Phosphatase 79 Total Protein 7.0 Albumin 3.8 Globulin 3.2 Albumin/Globulin Ratio 1.2 TSH 1.81 Specimen Hemolysis < 15 Ur Collection Type Urine Color Urine Clarity Urine pH Ur Specific [place] Urine Protein Urine Glucose (UA) Urine Ketones Urine Occult Blood Urine Nitrate Urine Bilirubin Urine Urobilinogen Ur Leukocyte Esterase Urine RBC Urine WBC Ur Squamous Epith Cells Urine Bacteria Urine Mucus Ur Culture Indicated? 03/02/17 12:08 WBC RBC Hgb Hct MCV MCH MCHC RDW Std Deviation Plt Count MPV Immature Gran % (Auto) Neut % (Auto) Lymph % (Auto) [place] % (Auto) Eos % (Auto) Baso % (Auto) Neut # (Auto) Lymph # (Auto) [place] # (Auto) Eos # (Auto) Baso # (Auto) Abs Immat Gran (auto) Turbidity Sodium Potassium Chloride Carbon Dioxide Anion Gap BUN Creatinine GFR Calculation BUN/Creatinine Ratio Glucose Calculated Osmolality Calcium Total Bilirubin Icterus Index AST ALT Alkaline Phosphatase Total Protein Albumin Globulin Albumin/Globulin Ratio TSH Specimen Hemolysis Ur Collection Type Urine, clean catch Urine Color Yellow Urine Clarity Clear Urine pH 6.0 Ur Specific [place] <=1.005 L Urine Protein Negative Urine Glucose (UA) Negative Urine Ketones Negative Urine Occult Blood 1+ A Urine Nitrate Negative Urine Bilirubin Negative Urine Urobilinogen 0.2 Ur Leukocyte Esterase Negative Urine RBC 0-1 Urine WBC 3-5 Ur Squamous Epith Cells 5-10 Urine Bacteria Trace H Urine Mucus Present Ur Culture Indicated? Cult not indicated History of Present Illness HPI: This an 86-year-old senior living patient who has been noncompliant to her medications for many months now, reported secondhand as long as July of this year. She has had several days of increasing agitation combativeness with the nursing staff at the senior living. She has a known urinary tract infection which was been confirmed by urinalysis on her prior outpatient visit to the emergency room here. She is altered confrontational and combative to staff here. She has made several litigious threats staff attempted to engage in treatment with her. She has also made several statements of several different non-coherent paranoid delusional ideas. She reportedly has no supporting family the contactable. The only known living relative is reportedly homeless. Objective Vital signs: Temperature 97.4 F 03/03/17 07:40 Pulse Rate 70 03/03/17 07:40 Respiratory Rate 18 03/03/17 07:40 Blood Pressure 136/74 03/03/17 07:40 Pulse Oximetry 93 03/03/17 07:40 Height/Weight/BMI: Height 1.73 m Weight 57.6 kg Body Mass Index 20.2 Comments: Gen: alert. Oriented to person and year. Not to place. Unable to tell me where she resides. Skin: warm and dry HEENT: NC/AT PERRL, EOMI, Sclera, lids and conjunctiva wnl. MMM. OP clear. Neck: No JVD, Carotids 2+ without bruits Lungs: clear. No rales, rhonchi or wheezes CV: regular. soft murmur, rub or gallop Abd: soft. +BS. NT/ND MS: No edema. Good strength and ROM Neuro: No focal deficits Hospital Course This is a general summary of the patient's hospital course. For more details refer to the complete medical record. Hospital course: 02/28/2017 Patient had already been given a dose of Haldol and Rocephin. I attempted to offer the patient the opportunity to take a single dose of fosfomycin as therapeutic treatment and return back to her senior living. (Although the senior living does not want her back until she is less combative). Patient is not in her right mind and unwilling to do this and so will be kept here on IV or IM injections of Rocephin for the seven-day course or until she develops enough wherewithal to take the oral fosfomycin. Haldol PRN has been scribed for for the protection of medical staff required to manage her. 03/01/17 Patient initially minimally conversant when seen in the morning. By the afternoon however she had taken the fosfomycin from the nurses and nurses had noticed a significant improvement in her engagement with the staff 03/02/17 Today, she is up in chair. She does not know where she is at this time. She cannot answer where she lives either. 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 She denies SOA, CP, Palp, abd pain , N/V. She denies dysuria. She reports eating well. 03/03/17 Pt up in chair. She is pleasant and cooperative. She refused her meds and I explained to her she can do that. I did just dc them. I would still follow her BPs and should she consistently be above 150 she may need to be treated if you can convince her to take anything. She does not want the Cymbalta as she thinks it makes her feel poorly. She is up to bathroom on her own. Discharge Plan - Discharge Disposition Disposition: 04 To [facility] Home/Facility *Condition: Improved *Reason For Visit: Encephalopathy, UTI - Discharge Medications *Discharge Medications: New Aspirin *EC* [Ecotrin] 325 mg PO BID PRN tablet PRN Reason: Pain Acetaminophen [Tylenol] 325 - 650 mg PO Q5H PRN tablet PRN Reason: Discomfort Ibuprofen [Motrin] 600 mg PO Q6H PRN tablet PRN Reason: Pain Continue Cholecalciferol (Vitamin D3) [Vitamin D3] 2,000 unit PO DAILY Mag Hydrox/Aluminum Hyd/Simeth [Maalox Advanced Suspension] 30 ml PO Q2H PRN PRN Reason: Heartburn Cyanocobalamin (Vitamin B-12) [Vitamin B-12] 1,000 mcg PO DAILY #0 Dextran 70/Hypromellose [Artificial Tears Eye Drops] 1 drop EACH EYE TID PRN PRN Reason: Dry Eyes Discontinued Duloxetine [Cymbalta] 20 mg PO DAILY Aspirin 81 mg PO DAILY Aspirin 81 mg PO TID PRN PRN Reason: Hypertension Sulfamethox/Tmp [Bactrim Ds] 1 tab PO BID Lisinopril 20 mg PO HS #0 Amlodipine Besylate 5 mg PO DAILY #0 - Discharge Packet/Instructions *Diet: regular *Activity: as tolerated *Pain Management/Treatment: ASA, tylenol, ibuprofen *Wound Care: n/a *Expected Signs/Symptoms: N/A *Notify Physician if: pt has fevers, chills, dysuria, worsening confusion *Pending Lab/Results: No Pending Lab - Referrals/Follow Up - Patient Handouts Patient Handouts: Urinary Tract Infection in Women (GEN) - Dismissal Complete Discharge Instructions are:: Complete
[2017-03-03 15:25] VITALS: BP 139/69; PULSE 73; RESP 16; TEMP 97; O2SAT 95
--- NOTE | 2017-03-03 16:14 | Extended Care Facility Orders ---
Admission Orders Admit to:: [facility] Allergies/Adverse Reactions: Allergies iodine Allergy (Unknown, Verified 02/28/17 15:37) shellfish derived Allergy (Unknown, Verified 02/28/17 15:37) Pork/Porcine Containing Products Allergy (Verified 03/01/17 10:17) PREFERS TO NOT EAT PORK Admitting Diagnosis: Encephalopathy, UTI Admitting Physician: Jose Spivey MD Attending Physician: Jose Spivey MD Rehab Potential: good Rehab Prognosis: good Diet: regular. Wound/Incision Care: N/a May use Facility Protocol or Standing Orders: Yes May have flu vaccine: Yes Evaluations/Treatment: as needed Care Home Certification: I certify that SNF services are required to be given on an Inpatient basis because of the patients need for intermediate care on a continuing basis for the condition(s) for which he/she received inpatient hospital services prior to his/her transfer to the SNF. SNF inpatient care is necessary for the following reasons - Additional Information In Event of Arrest: Start CPR,call 911,send patient to the ER Resident is Aware of Diagnosis: No Laboratory/Radiology: Laboratory Tests 02/28/17 02/28/17 02/28/17 17:18 17:20 17:21 WBC 6.7 RBC 4.05 Hgb 12.9 Hct 39.2 MCV 96.8 MCH 31.9 MCHC 32.9 RDW Std Deviation 45.6 Plt Count 183 MPV 9.2 L Immature Gran % (Auto) 0.1 Neut % (Auto) 75.4 H Lymph % (Auto) 13.7 L [place] % (Auto) 10.3 H Eos % (Auto) 0.4 Baso % (Auto) 0.1 Neut # (Auto) 5.1 Lymph # (Auto) 0.9 L [place] # (Auto) 0.7 Eos # (Auto) 0.0 Baso # (Auto) 0.0 Abs Immat Gran (auto) 0.01 Turbidity < 20 Sodium 141 Potassium 4.4 Chloride 108 H Carbon Dioxide 24 Anion Gap 9 BUN 15.0 Creatinine 1.0 GFR Calculation 53 BUN/Creatinine Ratio 15 Glucose 125 H Calculated Osmolality 273 Calcium 10.6 H Total Bilirubin 0.80 Icterus Index < 2 AST 22 ALT 24 Alkaline Phosphatase 79 Total Protein 7.0 Albumin 3.8 Globulin 3.2 Albumin/Globulin Ratio 1.2 TSH 1.81 Specimen Hemolysis < 15 Ur Collection Type Urine Color Urine Clarity Urine pH Ur Specific [place] Urine Protein Urine Glucose (UA) Urine Ketones Urine Occult Blood Urine Nitrate Urine Bilirubin Urine Urobilinogen Ur Leukocyte Esterase Urine RBC Urine WBC Ur Squamous Epith Cells Urine Bacteria Urine Mucus Ur Culture Indicated? 03/02/17 12:08 WBC RBC Hgb Hct MCV MCH MCHC RDW Std Deviation Plt Count MPV Immature Gran % (Auto) Neut % (Auto) Lymph % (Auto) [place] % (Auto) Eos % (Auto) Baso % (Auto) Neut # (Auto) Lymph # (Auto) [place] # (Auto) Eos # (Auto) Baso # (Auto) Abs Immat Gran (auto) Turbidity Sodium Potassium Chloride Carbon Dioxide Anion Gap BUN Creatinine GFR Calculation BUN/Creatinine Ratio Glucose Calculated Osmolality Calcium Total Bilirubin Icterus Index AST ALT Alkaline Phosphatase Total Protein Albumin Globulin Albumin/Globulin Ratio TSH Specimen Hemolysis Ur Collection Type Urine, clean catch Urine Color Yellow Urine Clarity Clear Urine pH 6.0 Ur Specific [place] <=1.005 L Urine Protein Negative Urine Glucose (UA) Negative Urine Ketones Negative Urine Occult Blood 1+ A Urine Nitrate Negative Urine Bilirubin Negative Urine Urobilinogen 0.2 Ur Leukocyte Esterase Negative Urine RBC 0-1 Urine WBC 3-5 Ur Squamous Epith Cells 5-10 Urine Bacteria Trace H Urine Mucus Present Ur Culture Indicated? Cult not indicated
== END 2017-03-03 17:35 | DRG 689 ==
LOC: ED 15:15 → MED 19:48
PROVIDERS: ADMIT Family Medicine; ATTEND Family Medicine